=== PATIENT | male | born 1955 | race Caucasian/White ===

== ENCOUNTER 2019-10-17 11:24 | Emergency (ER) | payer OTHER ==
[~2019-10-17 11:24] MED LIST: Iopamidol-370 76% 500 ML 1 ML ONE
[2019-10-17 11:49] LABS: #Basophils 0.1 thou/uL (0.0-0.2); #Eosinphils 0.1 thou/uL (0.0-0.7); #Lymphocytes 2.2 thou/uL (1.20-3.40); #Monocytes 0.7 thou/uL (0.11-0.59); #Neutrophils 6.5 thou/uL (1.40-6.50); %Basophils 0.9 % (0.0-1.0); %Eosinophils 1.4 % (0.0-10.0); %Lymphocytes 23.1 % (21.0-51.0); %Monocytes 7.6 % (0.0-10.0); Hemoglobin 13.2 g/dL (14.0-18.0); Mean Corpuscular HGB CONC 32.2 g/dL (32.0-36.0); Mean Corpuscular Hemoglobin 29.3 pg (27.0-31.0); Mean Corpuscular Volume 90.9 fL (78.0-98.0); Mean Platelet Volume 9.3 fL (7.4-10.4); Platelet Count 217 thou/uL (130-400); RBC Distribution Width 15.2 % (11.5-14.5); White Blood Cell (WBC) Count 9.7 thou/uL (4.8-10.8)
--- NOTE | 2019-10-17 11:51 | RAD ---
RADIOGRAPH CHEST 1 VIEW: DATE: 10/17/2019 TIME: 11:46 AM HISTORY: 64-year-old male with chest pain COMPARISON: none FINDINGS: Magnification of cardiac shadow. Prominent central pulmonary vasculature. Mild haziness of right mid and lower lung zones; uncertain whether this is technical or represents actual mild pulmonary pathology. No effacement of lateral costophrenic angles. No pneumothorax. No obvious consolidation. IMPRESSION: Questionable mild cardiomegaly and mild pulmonary venous congestion
[2019-10-17 12:12] LABS: ALT (SGPT) 127 U/L (8-55); AST (SGOT) 186 U/L (5-34); Albumin 3.4 g/dL (3.4-4.8); Alkaline Phosphatase 185 U/L (40-110); Anion Gap 13 mmol/L (10-20); BUN (Urea Nitrogen) 13 mg/dL (8.4-25.7); Bilirubin, Total 2.6 mg/dL (0.2-1.2); Calc. Creatinine Clearance 0 mL/min (70-130); Carbon Dioxide 23 mmol/L (23-31); Chloride 105 mmol/L (98-107); Estimated GFR-MDRD Greater than 90; Globulin 3.9 g/dL (2.4-3.5); Glucose 133 mg/dL (80-115); Potassium 4.1 mmol/L (3.5-5.1); Protein, Total 7.3 g/dL (5.8-8.1); Sodium 137 mmol/L (136-145)
[2019-10-17 12:33] LABS: CKMB 1.4 ng/mL (0-6.6)
[2019-10-17] MEDS ORDERED: Furosemide 20 MG/2 ML VIAL ONE (13:17)
[2019-10-17 14:13] LABS: Actual Bicarbonate (HCO3a) 17.2 mEq/L (22-28); Analyzer IN Cardio ER; Base Excess (BEa) -4.9 mEq/L (-2.0 to +3.0); Calcium, Ionized 1.11 mmol/L (1.12-1.30); Carboxyhemoglobin (COHb) 0.5 gm% (0.0-3.0); Hemoglobin (Hb) 13.7 g/dL (14.0-18.0); O2 Tension (PaO2) 181.2 mmHg (> 80.0); Potassium - ABG Lab 3.95 mmol/L (3.70-5.30); pH, Arterial 7.46 (7.35-7.45)
[2019-10-17 15:06] LABS: Cocaine Metabolite Screen Not Detected (NotDetected); Medtox Reader # READER 4; Phencyclidine (PCP) Not Detected (NotDetected); THC/Cannabinoid Screen Not Detected (NotDetected)
[2019-10-17 15:07] LABS: Amphetamine Detected (NotDetected); Barbiturates Screen Not Detected (NotDetected); Benzodiazepine Screen Detected (NotDetected); Medtox Control Line Valid? VALID (VALID); Methadone Not Detected (NotDetected); Methamphetamine Detected (NotDetected); Opiate Screen Not Detected (NotDetected); Oxycodone Screen Not Detected (NotDetected); Tricyclic Screen Not Detected (NotDetected)
--- NOTE | 2019-10-17 15:34 | CT ---
CT ANGIOGRAM THORAX WITH CONTRAST: (CTA pulmonary angiogram) DATE: 10/17/2019 HISTORY: 64-year-old male with dry cough, chills, and fever TECHNIQUE: IV injection of iodinated contrast. Scan acquisition timing attempted to coincide with iodinated contrast bolus reaching maximal density in pulmonary arteries. 3-D MIP reconstructions. FINDINGS: There is small lateral pleural effusions, right greater than left. There is mild four-chamber dilatio n of the heart. There is no thrombus in the pulmonic trunk, left and right main pulmonary arteries, or their most proximal branches. The mid and distal branches are more difficult to evaluate because o f breathing motion artifact. There is an approximate 7 mm noncalcified pulmonary nodule in the left lower lobe located laterally a nd slightly anteriorly. Located anterior and slightly inferior to that, there is an approximate 6 mm noncalcified pulmonary n odule very close to the anterior lateral pleural surface, abutting the inferior portion of the major fissure adjacent to the lingula. Approximately 5 mm noncalcified pulmonary nodule at the right lower lobe abutting the lateral pleural surface. Approximate 7 mm noncalcified pulmonary nodule at apicoposterior segment of left upper lobe. There are centrally located perihilar bilateral upper lobe and lower lobe mild interstitial groundgla ss infiltrates. The most prominent is in the right upper lobe surrounding upper lobe bronchi and blood vessels. There is a small approximately 2 cm focal groundglass lesion in anterior segment of le ft upper lobe near anterior pleural surface. No thoracic aortic aneurysm. Not enough IV contrast in aorta to evaluate for dissection. Multiple mil dly to moderately enlarged noncalcified mediastinal and bilateral hilar lymph nodes. IMPRESSION: 1. No evidence of pulmonary thromboembolism out to the second order branches of the bilateral main pu lmonary arteries. 2. Multifocal, predominantly central and perihilar mild infiltrates. Etiology uncertain. Pulmonary in terstitial edema such as from congestive heart failure versus infection. 3. Small bilateral pleural effusions. 4. Several bilateral noncalcified pulmonary nodules. Recommend 6 month follow-up chest CT.
[2019-10-18 10:21] LABS: SARS-CoV-2 MS2 Positive; SARS-CoV-2 N Gene Negative; SARS-CoV-2 S Gene Negative; SARS-CoV-2 orf1ab Negative
[2019-10-18 12:40] LABS: Puncture Site RRA
== END 2019-10-17 18:50 ==
LOC: ERS 11:24
DX: I11.0 Hypertensive heart disease with heart failure (principal); I50.9 Heart failure, unspecified; F15.20 Other stimulant dependence, uncomplicated; Z20.828 Contact with and (suspected) exposure to other viral communicable diseases; J44.9 Chronic obstructive pulmonary disease, unspecified; E11.9 Type 2 diabetes mellitus without complications; F41.9 Anxiety disorder, unspecified; F17.210 Nicotine dependence, cigarettes, uncomplicated; Z79.82 Long term (current) use of aspirin; Z79.4 Long term (current) use of insulin; Z79.899 Other long term (current) drug therapy
CPT/HCPCS: 36415; 51701; 71045; 71275; 80053; 80306; 82553; 82805; 83605; 83880; 84443; 84484; 85025; 87040; 87086; 87635; 93005; J1940; Q9967; U0003

== ENCOUNTER 2020-05-19 06:32 | Inpatient (IN) | payer MEDICARE, OTHER ==
[2020-05-19] MEDS ORDERED: Lorazepam 2 MG/ML VIAL ONE (07:28)
[2020-05-19] MEDS ORDERED: Furosemide 40 MG/4 ML VIAL ONE (07:31)
[2020-05-19] MEDS ORDERED: Nitroglycerin 2% Ointment 1 INCH/1 GM Packet ONE (07:31)
[2020-05-19 07:46] LABS: #Basophils 0.1 thou/uL (0.0-0.2); #Eosinphils 0.2 thou/uL (0.0-0.7); #Lymphocytes 1.9 thou/uL (1.20-3.40); #Neutrophils 6.5 thou/uL (1.40-6.50); %Lymphocytes 19.7 % (21.0-51.0); %Monocytes 10.5 % (0.0-10.0); %Neutrophils 66.8 % (42.0-75.0); Hemoglobin 13.4 g/dL (14.0-18.0); Mean Corpuscular HGB CONC 31.4 g/dL (32.0-36.0); Mean Corpuscular Hemoglobin 29.2 pg (27.0-31.0); Mean Corpuscular Volume 93.3 fL (78.0-98.0); Mean Platelet Volume 9.9 fL (7.4-10.4); Platelet Count 152 thou/uL (130-400); RBC Distribution Width 16.6 % (11.5-14.5); Red Blood Cell (RBC) Count 4.57 mill/uL (4.70-6.10); White Blood Cell (WBC) Count 9.7 thou/uL (4.8-10.8)
--- NOTE | 2020-05-19 07:53 | RAD ---
Chest AP view INDICATION: Shortness of breath COMPARISON: Prior exam dated May 13, 2020 FINDINGS: Lungs: There is new interstitial and airspace opacities affecting both lungs Cardiac silhouette: There is persistent cardiomegaly Pulmonary vasculature: There is mild pulmonary vascular congestion Pleural spaces: There are small suspected pleural effusions Upper abdomen: No abnormality seen. Osseous structures: No acute osseous abnormality. Additional findings: None. IMPRESSION: New interstitial airspace opacities affecting both lungs may reflect airspace edema or atypical infec tious process such as viral pneumonia. There is cardiomegaly, pulmonary vascular congestion and tiny bilateral pleural effusions. Recommend correlation for any symptoms and signs of CHF.
[2020-05-19 08:11] LABS: ALT (SGPT) 19 U/L (8-55); AST (SGOT) 36 U/L (5-34); Albumin 3.2 g/dL (3.4-4.8); Alkaline Phosphatase 182 U/L (40-110); Anion Gap 20 mmol/L (10-20); BUN (Urea Nitrogen) 15 mg/dL (8.4-25.7); Bilirubin, Total 2.6 mg/dL (0.2-1.2); Calc. Creatinine Clearance 0 mL/min (70-130); Calcium 8.3 mg/dL (7.8-10.44); Carbon Dioxide 20 mmol/L (23-31); Chloride 101 mmol/L (98-107); Globulin 4.5 g/dL (2.4-3.5); Glucose 114 mg/dL (80-115); Potassium 4.7 mmol/L (3.5-5.1); Protein, Total 7.7 g/dL (5.8-8.1); Sodium 136 mmol/L (136-145)
[2020-05-19] MEDS ORDERED: Aspirin Chewable 81 MG TAB ONE (08:24)
[2020-05-19 08:31] LABS: CKMB 3.5 ng/mL (0-6.6)
[2020-05-19] MEDS ORDERED: HumaLOG 300 UNITS/3 ML VIAL SC PRN (09:46)
[2020-05-19] MEDS ORDERED: Dextrose 50% Abboject 50 ML SYRINGE SLOW IVP PRN (09:46)
[2020-05-19] MEDS ORDERED: Ondansetron PF 4 MG/2 ML Vial IVP PRN (09:46)
[2020-05-19] MEDS ORDERED: Senokot S 8.6-50 MG TAB PO PRN (09:46)
[2020-05-19] MEDS ORDERED: Dextrose 5% in Water 1,000 ML IV PRN (09:46)
[2020-05-19] MEDS ORDERED: Bisacodyl 10 MG SUPP PR PRN (09:46)
[2020-05-19 10:21] LABS: Alcohol Less than 10 mg/dL (Less than 10); Salicylate Less than 8.0 mg/dL (15.0-30.0)
[2020-05-19 10:49] LABS: Troponin I 0.033 ng/mL (< 0.028)
--- NOTE | 2020-05-19 11:05 | HP ---
REASON FOR ADMISSION: Acute respiratory failure with hypoxia, acute congestive heart failure exacerbation, likely systolic, and metabolic encephalopathy. HISTORY OF PRESENTING ILLNESS: Please note majority of this history is obtained by talking to Dr. Nixon in the ER and prior records as patient is completely obtunded at present. He barely wakes up to sternal pressure. Per ER physician, the patient had come on the for complaints of shortness of breath. He wanted Lasix and got a prescription for it and left from the ER. He did not want to get hospitalized. He normally goes to [facility]. He did not have any fever on arrival. His saturations were 80% to 85% on arrival and had to be placed on BiPAP. The patient got very anxious on BiPAP and got a dose of Ativan 1 mg IV push. From then on, he is more obtunded now. PAST MEDICAL AND SURGICAL HISTORY: History of chronic obstructive pulmonary disease, not on home oxygen; hypertension, diabetes mellitus type 2, obesity, likely heart failure, appendectomy, polysubstance use in the past, and tobacco abuse. CURRENT MEDICATIONS: Cannot be obtained as patient is not oriented. ALLERGIES: ALLERGIC TO CODEINE. PERSONAL HISTORY: The patient apparently smokes half pack a day. His prior urine drug screens have been positive for methamphetamine and marijuana. Alcohol use cannot be ascertained at present. FAMILY HISTORY: Per prior records in 2011, the patient's father has had history of multiple CVAs, diabetes runs in the family. CODE STATUS: Presumed to be full. I am unable to reach his significant other, Ms Alice at [phone]. REVIEW OF SYSTEMS: Cannot be obtained as patient is not oriented at present. PHYSICAL EXAMINATION: GENERAL: The patient is a 64-year-old male, who is currently on BiPAP and is obtunded at present, just barely opening his eyes to sternal pressure. VITAL SIGNS: Blood pressure 114/90, pulse 110 per minute, respiratory rate is 24 per minute, temperature 97.6 degrees fahrenheit, and saturating 93% on BiPAP. NECK: Supple there is elevated JVD. HEENT: Eyes; extraocular muscles are intact. Pupils are reacting to light. Oral cavity, mucous membranes are dry. No exudates or congestion. CARDIOVASCULAR SYSTEM: S1 and S2 heard. Regular rhythm. RESPIRATORY SYSTEM: Air entry 1+ bilateral. Scattered wheezes plus bilateral rhonchi plus, rales plus in the infra-axillary area. ABDOMEN: Soft. Bowel sounds heard. No tenderness, rigidity, or guarding. EXTREMITIES: There is 2+ peripheral edema. No calf tenderness. VASCULAR SYSTEM: Peripheral pulses are barely palpable in the lower extremity. No ischemic ulcers or gangrene. CENTRAL NERVOUS SYSTEM: No gross focal deficits noted. The patient is obtunded at present, but was apparently moving all extremities prior to this. PSYCHIATRIC: Cannot be assessed as patient is obtunded at present. LABORATORY DATA: EKG done shows sinus tach at 117 beats per minute. QRS duration is 120 milliseconds, corrected QT is 465 milliseconds. There is RBBB seen. White count of 9 and H and H 13 and 42, platelet count 152, MCV is 93 with 66% neutrophils. Serum bicarb 20, BUN 15, creatinine 1.0, total bilirubin 2.6, AST 36, ALT 19, alkaline phosphatase 182. BNP 2149. Troponin I 0.03. Albumin is 3.2. Chest x-ray done shows pulmonary vascular congestion with airspace opacities bilaterally. CLINICAL IMPRESSION AND PLAN: The patient will be admitted to IM for acute respiratory failure with hypoxia, acute congestive heart failure exacerbation with unknown systolic function. Metabolic encephalopathy, prior history of substance usage. He will be on Lasix 40 mg IV at 6:00 a.m. and 2:00 p.m.. He has received a dose of Lasix this morning after arrival and his systolic blood pressure has dropped down to 90s. This will be closely monitored. If needed, he will be placed on dobutamine once his echo reveals systolic dysfunction. We will place him on aspirin, small dose of carvedilol, small dose of lisinopril, DuoNebs, steroids for wheezing. COVID-19 PCR is pending at present. Urine and blood drug screens will be obtained. I have consulted Dr. Zhu for Pulmonology. If the patient were to get worse with his mental status or if he develops aspiration, he will be intubated. We will consult Dr. Johnson for Cardiology as well. His overall prognosis is guarded with multiple medical issues in addition to history of substance use, tobacco use, and obesity. We will await COVID-19 PCR test as well. Job ID: [id number] [facility]
--- NOTE | 2020-05-19 11:57 | CON ---
DATE OF CONSULTATION: 05/19/2020 CONSULTING PHYSICIAN: Dr. Saleem. REASON FOR CONSULTATION: Respiratory failure related to congestive heart failure. HISTORY OF PRESENT ILLNESS: The patient is a 64-year-old male who presents to the hospital with increasing shortness of breath. He has been placed on BiPAP temporarily, but now has been weaned off that. He is a very poor historian, can not tell me much. What I have is obtained from reading old notes in the chart. PAST MEDICAL HISTORY: COPD, hypertension, and type 2 diabetes mellitus. PAST SURGICAL HISTORY: Appendectomy - open. SOCIAL HISTORY: He uses cocaine regularly by snorting. He denied tobacco use to me, but a week ago when he was in the emergency room, said he had smoked half pack a day for 30 years. He also endorses social drinking. ALLERGIES: CODEINE. MEDICATIONS: Prior to admission, none known. PHYSICAL EXAMINATION: VITAL SIGNS: Temperature 97.6, blood pressure 107/84, pulse 111, respirations 22, and O2 saturation 98% on 2 L. GENERAL: He is awake. He is fidgeting, but does not appear to be in any overt distress. HEENT: Has a general disheveled appearance. He has poor dentition. NECK: No adenopathy. No thyromegaly. LUNGS: He has inspiratory crackles at both bases. CARDIOVASCULAR: S1 and S2. Slightly tachycardic with summation gallop. ABDOMEN: Soft. There is a low midline surgical scar on the right. EXTREMITIES: No clubbing or cyanosis. He has generalized pitting edema from his knee downward. LABORATORY DATA: His BNP level was almost 2200. Sodium 136, potassium 4.7, chloride 101, CO2 of 20, BUN 15, creatinine 1.1, glucose 114, AST 36, ALT 19. His tox screen showed no alcohol, salicylates, or acetaminophen. White blood cell count 9.7, hematocrit 42.7, and platelet count 152. X-ray shows cardiomegaly with soft alveolar infiltrates. ASSESSMENT: 1. Acute systolic heart failure. 2. 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 3. Acute hypoxic respiratory failure, requiring temporary mechanical ventilation - now weaned. 4. Illicit drug use. PLAN: The patient is being admitted to the hospital for the purpose of diuresis, oxygen supplementation, and generalized care. He has a 7-mm lung nodule by CT scan obtained a week ago in the ER that is peripheral. He will need to follow for that in 6 to [address]. Job ID: [id number]
[2020-05-19 12:01] LABS: SARS-CoV-2 NAA Rapid Test Not Detected (NotDetected)
[2020-05-19 14:09] LABS: Troponin I 0.029 ng/mL (< 0.028)
[2020-05-19 16:09] VITALS: BMI 27.8
[2020-05-19] MEDS: methylPREDNISolone Sod Succ 40 MG VIAL IVP SCH ×2 (17:22→21:11)
[2020-05-19] MEDS: Furosemide 40 MG/4 ML VIAL SLOW IVP SCH (17:22)
[2020-05-19] MEDS ORDERED: Spironolactone 25 MG TAB PO SCH (17:30)
[2020-05-19 18:10] LABS: Amphetamine Not Detected (NotDetected); Barbiturates Screen Not Detected (NotDetected); Benzodiazepine Screen Detected (NotDetected); Cocaine Metabolite Screen Not Detected (NotDetected); Medtox Control Line Valid? VALID (VALID); Medtox Reader # READER 1; Methadone Not Detected (NotDetected); Methamphetamine Detected (NotDetected); Opiate Screen Not Detected (NotDetected); Oxycodone Screen Not Detected (NotDetected); Phencyclidine (PCP) Not Detected (NotDetected); THC/Cannabinoid Screen Not Detected (NotDetected); Tricyclic Screen Not Detected (NotDetected)
[2020-05-19] MEDS ORDERED: FLU VACC QS2020-21(65YR UP)/PF 240 MCG/0.7 ML SYRINGE IM ONE (21:00)
[2020-05-19] MEDS: Famotidine/PF 20 mg/2ml Vial SLOW IVP SCH (21:11)
[2020-05-19] MEDS: Carvedilol 3.125 MG TAB PO SCH (21:11)
[2020-05-19] MEDS: Atorvastatin Calcium 40 MG TAB PO SCH (21:11)
--- NOTE | 2020-05-19 23:52 | CON ---
DATE OF CONSULTATION: HISTORY OF PRESENT ILLNESS: The patient is an unfortunate 64-year-old gentleman,who presents for evaluation of dyspnea. The patient does report that he has a history of congestive heart failure. The patient is followed at the [facility]. The patient was in his usual state of health when he presented with increasing dyspnea. The patient reports that he has been compliant with his medications. The patient denied having any chest discomfort. PAST MEDICAL HISTORY: 1. Congestive heart failure. 2. Diabetes mellitus. 3. Hypertension. 4. COPD. PAST SURGICAL HISTORY: Appendectomy. SOCIAL HISTORY: He has a previous history of tobacco abuse. The patient also has a history of cocaine use. MEDICATIONS: Unknown to the patient. FAMILY HISTORY: Positive family history of heart disease. ALLERGIES: CODEINE. REVIEW OF SYSTEMS: A ten-point system otherwise unremarkable. PHYSICAL EXAMINATION: GENERAL: A well-developed gentleman, in no acute distress. VITAL SIGNS: Blood pressure 124/79. NECK: No jugular venous distention. LUNGS: Crackles in both bases. HEART: Regular rate and rhythm. Normal S1 and S2. 1/6 systolic murmur. ABDOMEN: Distended. EXTREMITIES: Showed moderate bilateral edema. LABORATORY RESULTS: White blood cell count 9.7, hemoglobin 13.4, hematocrit 42.7, and platelets 152. Sodium is 136, potassium 4.7, chloride 101, bicarbonate 20, BUN 15, and creatinine 1.05. Troponin was 0.037. BNP 2149. EKG revealed him to have normal sinus rhythm with a right bundle-branch block, Q-waves suggestive of a previous inferior infarction. IMPRESSION: 1. Congestive heart failure. 2. Severe cardiomyopathy .. 3. Hypertension. 4. Diabetes mellitus. 5. Chronic obstructive pulmonary disease. 6. History of illicit drug use. PLAN: This gentleman presents with congestive heart failure. He is being diuresed with Lasix. We will add spironolactone. The patient should be on Entresto. We will discontinue his lisinopril. He is on aspirin,and I would recommend him being placed on lipid-lowering medication. We will follow this patient with you through this hospitalization. Job ID: [id number] [facility]
[2020-05-20 04:59] LABS: #Basophils 0.1 thou/uL (0.0-0.2); #Lymphocytes 0.7 thou/uL (1.20-3.40); #Monocytes 0.1 thou/uL (0.11-0.59); #Neutrophils 5.6 thou/uL (1.40-6.50); %Basophils 1.1 % (0.0-1.0); %Eosinophils 0.1 % (0.0-10.0); %Lymphocytes 10.6 % (21.0-51.0); %Monocytes 2.2 % (0.0-10.0); %Neutrophils 86.1 % (42.0-75.0); Hemoglobin 12.6 g/dL (14.0-18.0); Mean Corpuscular HGB CONC 31.1 g/dL (32.0-36.0); Mean Corpuscular Hemoglobin 28.7 pg (27.0-31.0); Mean Corpuscular Volume 92.1 fL (78.0-98.0); Platelet Count 148 thou/uL (130-400); RBC Distribution Width 16.8 % (11.5-14.5); Red Blood Cell (RBC) Count 4.39 mill/uL (4.70-6.10); White Blood Cell (WBC) Count 6.5 thou/uL (4.8-10.8)
[2020-05-20] MEDS: methylPREDNISolone Sod Succ 40 MG VIAL IVP SCH (05:21)
[2020-05-20] MEDS: Furosemide 40 MG/4 ML VIAL SLOW IVP SCH ×2 (05:21→14:56)
[2020-05-20 05:30] LABS: ALT (SGPT) 15 U/L (8-55); AST (SGOT) 24 U/L (5-34); Albumin 2.9 g/dL (3.4-4.8); Alkaline Phosphatase 157 U/L (40-110); Anion Gap 19 mmol/L (10-20); BUN (Urea Nitrogen) 16 mg/dL (8.4-25.7); Bilirubin, Total 3.3 mg/dL (0.2-1.2); Calc. Creatinine Clearance 88 mL/min (70-130); Calcium 8.3 mg/dL (7.8-10.44); Carbon Dioxide 18 mmol/L (23-31); Chloride 101 mmol/L (98-107); Glucose 271 mg/dL (80-115); Protein, Total 6.9 g/dL (5.8-8.1); Sodium 134 mmol/L (136-145)
[2020-05-20] MEDS: HumaLOG 300 UNITS/3 ML VIAL SC PRN ×2 (06:18→18:39)
[2020-05-20] MEDS ORDERED: Lisinopril 2.5 MG TAB PO SCH (09:00)
[2020-05-20] MEDS: Aspirin Chewable 81 MG TAB PO SCH (09:56)
[2020-05-20] MEDS: Spironolactone 25 MG TAB PO SCH (09:56)
[2020-05-20] MEDS: Famotidine/PF 20 mg/2ml Vial SLOW IVP SCH (09:57)
[2020-05-20] MEDS: Carvedilol 3.125 MG TAB PO SCH ×2 (09:57→21:06)
[2020-05-20] MEDS: Enoxaparin Sodium 40 MG/0.4 ML SYRINGE SC SCH (09:57)
[2020-05-20] MEDS ORDERED: Magnesium 2 GM/50 ML 2 GM in Premix Bag 1 BAG IVPB SCH (13:00)
--- NOTE | 2020-05-20 13:01 | PDOC.HOSPP ---
- Subjective Encounter Date: 05/20/20 (f/u heart failure) Encounter Time: 12:59 Subjective: Pt reports breathing/swelling better but still having a hard time and short of breath. he denies any n/v/abd pain. He denies any new symptoms. - Objective Vital Signs & Weight: Vital Signs (12 hours) Temp Pulse Pulse Pulse Resp BP BP 05/20/20 12:46 113 H 20 05/20/20 11:14 98 F 105 H 18 05/20/20 08:52 97 91 124/80 111/80 05/20/20 08:00 05/20/20 07:38 97.8 F 111 H 18 05/20/20 07:08 05/20/20 07:06 117 H 20 05/20/20 03:23 99.1 F 111 H 16 BP Pulse Ox Pulse Ox Pulse Ox 05/20/20 12:46 98 05/20/20 11:14 118/80 98 05/20/20 08:52 99 99 05/20/20 08:00 99 05/20/20 07:38 115/78 99 05/20/20 07:08 98 05/20/20 07:06 98 05/20/20 03:23 118/85 96 Weight Weight 181 lb 1.6 oz I&O: 05/19/20 05/20/20 05/21/20 06:59 06:59 06:59 Output Total 1800 Balance -1800 Result Diagrams: 05/20/20 03:57 05/20/20 03:57 Additional Labs: Accuchecks 05/20/20 05/20/20 05/20/20 11:33 05:57 00:25 POC Glucose 343 H 247 H 330 H EKG Reviewed by me: Yes (tele - sinus 100-110's with 4 beats VT) Hospitalist ROS - Medication Medications: Active Medications Generic Name Dose Route Start Last Admin Trade Name Freq PRN Reason Stop Dose Admin Albuterol/Ipratropium 3 ml 05/19/20 13:00 05/20/20 12:46 Ipratropium/Albuterol Sulfate 3 Ml Neb NEB 3 ml [id number] MYRA Administration Aspirin 81 mg 05/20/20 09:00 05/20/20 09:56 Aspirin Chewable 81 Mg Tab PO 81 mg DAILY MYRA Administration Atorvastatin Calcium 40 mg 05/19/20 21:00 05/19/20 21:11 Atorvastatin Calcium 40 Mg Tab PO 40 mg HS MYRA Administration Carvedilol 3.125 mg 05/19/20 21:00 05/20/20 09:57 Carvedilol 3.125 Mg Tab PO 3.125 mg BID MYRA Administration Enoxaparin Sodium 40 mg 05/20/20 09:00 05/20/20 09:57 Enoxaparin Sodium 40 Mg/0.4 Ml Syringe SC 40 mg 0900 MYRA Administration Furosemide 40 mg 05/19/20 14:00 05/20/20 05:21 Furosemide 40 Mg/4 Ml Vial SLOW IVP 40 mg 0600,1400 MYRA Administration Insulin Human Lispro 0 units 05/19/20 09:46 05/20/20 06:18 Humalog 300 Units/3 Ml Vial SC 4 unit .MODERATE SLIDING SC PRN Administration Moderate Correctional Scale Insulin Human Lispro 0 units 05/19/20 09:46 05/20/20 00:40 Humalog 300 Units/3 Ml Vial SC 4 unit .BEDTIME SLIDING SC PRN Administration Bedtime Correctional Scale Spironolactone 25 mg 05/20/20 08:00 05/20/20 09:56 Spironolactone 25 Mg Tab PO 25 mg QAM-WM MYRA Administration - Exam General Appearance: NAD Heart: RRR, no murmur Respiratory: CTAB, no wheezes, no rales, no ronchi Respiratory - other findings: good air movement Gastrointestinal: soft, non-tender, non-distended, normal bowel sounds Extremities - other findings: 1+ edema bilateral Psychiatric: normal affect Hosp A/P (1) Acute decompensated heart failure Code(s): I50.9 - HEART FAILURE, UNSPECIFIED Status: Acute (2) Hypertension Code(s): I10 - ESSENTIAL (PRIMARY) HYPERTENSION Status: Chronic Qualifiers: Hypertension type: essential hypertension Qualified Code(s): I10 - Essential (primary) hypertension (3) Diabetes mellitus Code(s): E11.9 - TYPE 2 DIABETES MELLITUS WITHOUT COMPLICATIONS Status: Chronic Qualifiers: Diabetes mellitus type: type 2 Diabetes mellitus long term care phlebotomist insulin use: with long term care phlebotomist use (4) Acute respiratory failure Code(s): J96.00 - ACUTE RESPIRATORY FAILURE, UNSP W HYPOXIA OR HYPERCAPNIA Status: Acute Qualifiers: Respiratory failure complication: hypoxia Qualified Code(s): J96.01 - Acute respiratory failure with hypoxia (5) Encephalopathy Code(s): G93.40 - ENCEPHALOPATHY, UNSPECIFIED Status: Resolved (6) Ventricular tachycardia Code(s): I47.2 - VENTRICULAR TACHYCARDIA Status: Acute (7) Hypomagnesemia Code(s): E83.42 - HYPOMAGNESEMIA Status: Acute - Plan Acute resp failure secondary to heart failure, unknown type - appreciate Cardiology recs - echo - continue IV lasix and med titration VT & hypomagnesemia - replace magnesium IV Encephalopathy - appears resolved - pt reports he quit tobacco a week ago and he denies any other substance use/abuse DM - uncontrolled - d/c steroids as this does not appear to be COPD exac - add insulin - at home he takes 20 units BID - will start that dvt prophy - lovenox gi prophy - not indicated code status full reviewed plan of care with patient, no questions or further needs at end of eval.
[2020-05-20] MEDS ORDERED: Insulin Glargine 20 UNITS in Pre-Filled Syringe 1 EACH SC SCH (14:00)
[2020-05-20] MEDS: Guaifenesin DM 100-10/5 ML UDCUP PO PRN (21:06)
[2020-05-20] MEDS: Atorvastatin Calcium 40 MG TAB PO SCH (21:06)
[2020-05-20] MEDS: Insulin Glargine 20 UNITS in Pre-Filled Syringe 1 EACH SC SCH (21:15)
[2020-05-21 04:01] LABS: #Lymphocytes 1.4 thou/uL (1.20-3.40); #Monocytes 0.8 thou/uL (0.11-0.59); #Neutrophils 12.9 thou/uL (1.40-6.50); %Basophils 0.2 % (0.0-1.0); %Eosinophils 0.1 % (0.0-10.0); %Lymphocytes 9.4 % (21.0-51.0); %Neutrophils 85.3 % (42.0-75.0); Hemoglobin 12.4 g/dL (14.0-18.0); Mean Corpuscular HGB CONC 30.4 g/dL (32.0-36.0); Mean Corpuscular Hemoglobin 28.5 pg (27.0-31.0); Mean Corpuscular Volume 93.5 fL (78.0-98.0); Mean Platelet Volume 10.3 fL (7.4-10.4); Platelet Count 122 thou/uL (130-400); RBC Distribution Width 16.6 % (11.5-14.5); Red Blood Cell (RBC) Count 4.36 mill/uL (4.70-6.10); White Blood Cell (WBC) Count 15.1 thou/uL (4.8-10.8)
[2020-05-21 04:16] LABS: Anion Gap 19 mmol/L (10-20); BUN (Urea Nitrogen) 24 mg/dL (8.4-25.7); Calc. Creatinine Clearance 71 mL/min (70-130); Calcium 8.2 mg/dL (7.8-10.44); Carbon Dioxide 19 mmol/L (23-31); Chloride 104 mmol/L (98-107); Glucose 229 mg/dL (80-115); Potassium 4.7 mmol/L (3.5-5.1); Sodium 137 mmol/L (136-145)
[2020-05-21] MEDS: Furosemide 40 MG/4 ML VIAL SLOW IVP SCH ×3 (07:53→23:59)
[2020-05-21] MEDS ORDERED: Communication Order-Pharmacy FS SCH (08:15)
[2020-05-21] MEDS ORDERED: Insulin Glargine 20 UNITS in Pre-Filled Syringe 1 EACH SC SCH (09:00)
[2020-05-21] MEDS: Carvedilol 3.125 MG TAB PO SCH ×2 (09:10→20:25)
[2020-05-21] MEDS: Spironolactone 25 MG TAB PO SCH (09:10)
[2020-05-21] MEDS: Aspirin Chewable 81 MG TAB PO SCH (09:10)
[2020-05-21] MEDS: Enoxaparin Sodium 40 MG/0.4 ML SYRINGE SC SCH (09:11)
[2020-05-21] MEDS: Insulin Glargine 20 UNITS in Pre-Filled Syringe 1 EACH SC SCH (10:18)
[2020-05-21] MEDS: HumaLOG 300 UNITS/3 ML VIAL SC PRN ×2 (12:10→18:39)
--- NOTE | 2020-05-21 12:19 | PDOC.HOSPP ---
- Subjective Encounter Date: 05/21/20 (f/u heart failure) Encounter Time: 12:17 Subjective: Pt is out of breath after walking. States he doesnt feel as good now as he did earlier. He denies any pain. he reports pulling the figueredo out becuase it was uncomfortable. Overnight RN notes that pt was acting up and he pulled out iv as well. - Objective Vital Signs & Weight: Vital Signs (12 hours) Temp Pulse Pulse Pulse Resp BP BP 05/21/20 12:08 97.5 F L 101 H 17 05/21/20 09:41 99 100 102/66 109/74 05/21/20 07:52 05/21/20 07:48 97.5 F L 97 14 05/21/20 06:23 98 05/21/20 04:14 97.5 F L 95 24 H 05/21/20 04:00 BP Pulse Ox Pulse Ox Pulse Ox 05/21/20 12:08 94/65 99 05/21/20 09:41 100 99 05/21/20 07:52 96 05/21/20 07:48 102/66 96 05/21/20 06:23 95/67 05/21/20 04:14 92/58 L 96 05/21/20 04:00 96 Weight Weight 181 lb 1.6 oz I&O: 05/20/20 05/21/20 05/22/20 06:59 06:59 06:59 Intake Total 500 300 Output Total 1800 800 400 Balance -1800 -300 -100 Result Diagrams: 05/21/20 03:44 05/21/20 03:44 Additional Labs: Accuchecks 05/21/20 05/21/20 05/20/20 11:21 05:59 23:50 POC Glucose 244 H 224 H 165 H 05/20/20 21:15 POC Glucose 185 H EKG Reviewed by me: Yes (tele - sinus rate 90's with 1st deg av block) Hospitalist ROS - Medication Medications: Active Medications Generic Name Dose Route Start Last Admin Trade Name Freq PRN Reason Stop Dose Admin Aspirin 81 mg 05/20/20 09:00 05/21/20 09:10 Aspirin Chewable 81 Mg Tab PO 81 mg DAILY MYRA Administration Atorvastatin Calcium 40 mg 05/19/20 21:00 05/20/20 21:06 Atorvastatin Calcium 40 Mg Tab PO 40 mg HS MYRA Administration Carvedilol 3.125 mg 05/19/20 21:00 05/21/20 09:10 Carvedilol 3.125 Mg Tab PO 3.125 mg BID MYRA Administration Enoxaparin Sodium 40 mg 05/20/20 09:00 05/21/20 09:11 Enoxaparin Sodium 40 Mg/0.4 Ml Syringe SC 05/21/20 21:30 40 mg 0900 MYRA Administration Furosemide 40 mg 05/19/20 14:00 05/21/20 07:53 Furosemide 40 Mg/4 Ml Vial SLOW IVP Not Given 0600,1400 [facility] Guaifenesin/Dextromethorphan 15 ml 05/19/20 09:46 05/20/20 21:06 Guaifenesin Dm 100-10/5 Ml Udcup PO 15 ml Q4H PRN Administration Cough Insulin Human Lispro 0 units 05/19/20 09:46 05/21/20 12:10 Humalog 300 Units/3 Ml Vial SC 4 unit .MODERATE SLIDING SC PRN Administration Moderate Correctional Scale Insulin Human Lispro 0 units 05/19/20 09:46 05/20/20 00:40 Humalog 300 Units/3 Ml Vial SC 4 unit .BEDTIME SLIDING SC PRN Administration Bedtime Correctional Scale Sacubitril/Valsartan 1 tab 05/20/20 21:00 05/21/20 10:18 Sacubitril 24mg/Valsartan 26mg Tab PO 1 tab BID MYRA Administration Spironolactone 25 mg 05/20/20 08:00 05/21/20 09:10 Spironolactone 25 Mg Tab PO 25 mg QAM-WM MYRA Administration - Exam General Appearance: NAD Heart: RRR, no murmur Respiratory: no wheezes, no rales, no ronchi Respiratory - other findings: good air movement Gastrointestinal: soft, non-tender, non-distended, normal bowel sounds Extremities - other findings: 1+ edema bilateral edema Psychiatric: normal affect Hosp A/P (1) Acute decompensated heart failure Code(s): I50.9 - HEART FAILURE, UNSPECIFIED Status: Acute (2) Hypertension Code(s): I10 - ESSENTIAL (PRIMARY) HYPERTENSION Status: Chronic Qualifiers: Hypertension type: essential hypertension Qualified Code(s): I10 - Essential (primary) hypertension (3) Diabetes mellitus Code(s): E11.9 - TYPE 2 DIABETES MELLITUS WITHOUT COMPLICATIONS Status: Chronic Qualifiers: Diabetes mellitus type: type 2 Diabetes mellitus correction insulin use: with correction use (4) Acute respiratory failure Code(s): J96.00 - ACUTE RESPIRATORY FAILURE, UNSP W HYPOXIA OR HYPERCAPNIA Status: Acute Qualifiers: Respiratory failure complication: hypoxia Qualified Code(s): J96.01 - Acute respiratory failure with hypoxia (5) Encephalopathy Code(s): G93.40 - ENCEPHALOPATHY, UNSPECIFIED Status: Resolved (6) Ventricular tachycardia Code(s): I47.2 - VENTRICULAR TACHYCARDIA Status: Resolved (7) Hypomagnesemia Code(s): E83.42 - HYPOMAGNESEMIA Status: Resolved - Plan Acute resp failure secondary to systolic and diastolic HF - appreciate Cardiology recs - echo shows low EF estimated at 20-25% - plan for cath tomorrow - on beta-raymond, entresto, spironolactone VT & hypomagnesemia - both resolved Encephalopathy - appears resolved - placed a communication [facility] DM - uncontrolled - steroids d/c yesterday and long-acting insulin started - will increase long-acting insulin to 25 units BID and continue adjusting - leukocytosis today likely secondary to steroids that were d/c yesterday. No focal signs of infection. dvt prophy - lovenox - d/c as pt having a cath tomorrow. gi prophy - not indicated code status full reviewed plan of care with patient, no questions or further needs at end of eval.
[2020-05-21] MEDS: Guaifenesin DM 100-10/5 ML UDCUP PO PRN ×2 (16:42→20:25)
[2020-05-21] MEDS: Atorvastatin Calcium 40 MG TAB PO SCH (20:25)
[2020-05-21] MEDS: Insulin Glargine 25 UNITS in Pre-Filled Syringe 1 EACH SC SCH (20:34)
[2020-05-22 03:56] LABS: #Basophils 0.1 thou/uL (0.0-0.2); #Lymphocytes 1.6 thou/uL (1.20-3.40); #Monocytes 1.3 thou/uL (0.11-0.59); #Neutrophils 14.3 thou/uL (1.40-6.50); %Basophils 0.3 % (0.0-1.0); %Eosinophils 0.2 % (0.0-10.0); %Lymphocytes 9.2 % (21.0-51.0); %Monocytes 7.7 % (0.0-10.0); %Neutrophils 82.6 % (42.0-75.0); Mean Corpuscular HGB CONC 31.4 g/dL (32.0-36.0); Mean Corpuscular Hemoglobin 29.1 pg (27.0-31.0); Mean Corpuscular Volume 92.7 fL (78.0-98.0); Mean Platelet Volume 10.1 fL (7.4-10.4); Platelet Count 147 thou/uL (130-400); RBC Distribution Width 16.8 % (11.5-14.5); Red Blood Cell (RBC) Count 4.47 mill/uL (4.70-6.10); White Blood Cell (WBC) Count 17.4 thou/uL (4.8-10.8)
[2020-05-22 04:16] LABS: Anion Gap 17 mmol/L (10-20); BUN (Urea Nitrogen) 33 mg/dL (8.4-25.7); Calc. Creatinine Clearance 80 mL/min (70-130); Calcium 7.8 mg/dL (7.8-10.44); Carbon Dioxide 20 mmol/L (23-31); Chloride 102 mmol/L (98-107); Glucose 157 mg/dL (80-115); Magnesium 1.9 mg/dL (1.6-2.6); Potassium 4.4 mmol/L (3.5-5.1); Sodium 135 mmol/L (136-145)
[2020-05-22] MEDS: Aspirin Chewable 81 MG TAB PO SCH (06:08)
[2020-05-22] MEDS: Carvedilol 3.125 MG TAB PO SCH ×2 (06:08→21:39)
[2020-05-22] MEDS ORDERED: Sodium Chloride 0.9% 500 ML IV SCH (08:45)
[2020-05-22] MEDS: Spironolactone 25 MG TAB PO SCH (09:15)
[2020-05-22] MEDS: Insulin Glargine 25 UNITS in Pre-Filled Syringe 1 EACH SC SCH (09:15)
--- NOTE | 2020-05-22 09:25 | PDOC.HOSPP ---
- Subjective Encounter Date: 05/22/20 (f/u heart failure) Encounter Time: :20 Subjective: Pt admitted for decompensated heart failure (EF 20-25%), has been started on multiple medications, including steroids for concern for COPD with last dose 2 days ago. This morning his blood pressure was low. Was to have a cath - postponed due to leukocytosis. Pt feeling nauseous. bp's in the 80's systolic, and he is receiving IVF. He reports breathing is better. He denies any chest pain. - Objective Vital Signs & Weight: Vital Signs (12 hours) Temp Pulse Resp BP Pulse Ox 05/22/20 08:04 97.3 F L 90 16 82/60 L 100 05/22/20 07:40 95 05/22/20 03:41 97.7 F 91 20 109/75 95 Weight Weight 180 lb 6 oz I&O: 05/21/20 05/22/20 05/23/20 06:59 06:59 06:59 Intake Total 500 940 Output Total 800 1160 Balance -300 -220 Result Diagrams: 05/22/20 03:43 05/22/20 03:43 Additional Labs: Accuchecks 05/21/20 05/21/20 05/21/20 23:45 19:53 17:38 POC Glucose 131 H 85 157 H 05/21/20 05/20/20 11:21 17:57 POC Glucose 244 H 217 H EKG Reviewed by me: Yes (tele - 60's with fusion beats, brief wap and mat) Hospitalist ROS - Medication Medications: Active Medications Generic Name Dose Route Start Last Admin Trade Name Sheyla PRN Reason Stop Dose Admin Aspirin 81 mg 05/20/20 09:00 05/22/20 06:08 Aspirin Chewable 81 Mg Tab PO 81 mg DAILY MYRA Administration Atorvastatin Calcium 40 mg 05/19/20 21:00 05/21/20 20:25 Atorvastatin Calcium 40 Mg Tab PO 40 mg HS MYRA Administration Carvedilol 3.125 mg 05/19/20 21:00 05/22/20 06:08 Carvedilol 3.125 Mg Tab PO 3.125 mg BID MYRA Administration Furosemide 40 mg 05/19/20 14:00 05/21/20 23:59 Furosemide 40 Mg/4 Ml Vial SLOW IVP Not Given 0600,1400 MYRA Guaifenesin/Dextromethorphan 15 ml 05/19/20 09:46 05/21/20 20:25 Guaifenesin Dm 100-10/5 Ml Udcup PO 15 ml Q4H PRN Administration Cough Insulin Glargine 25 units/ 0.25 mls @ 0 mls/hr 05/21/20 21:00 05/22/20 09:15 Miscellaneous Medication SC Not Given BID MYRA Insulin Human Lispro 0 units 05/19/20 09:46 05/21/20 18:39 Humalog 300 Units/3 Ml Vial SC 2 unit .MODERATE SLIDING SC PRN Administration Moderate Correctional Scale Insulin Human Lispro 0 units 05/19/20 09:46 05/20/20 00:40 Humalog 300 Units/3 Ml Vial SC 4 unit .BEDTIME SLIDING SC PRN Administration Bedtime Correctional Scale Ondansetron HCl 4 mg 05/19/20 09:46 05/22/20 09:10 Ondansetron Pf 4 Mg/2 Ml Vial IVP 4 mg Q6H PRN Administration Nausea/Vomiting Sacubitril/Valsartan 1 tab 05/20/20 21:00 05/22/20 06:09 Sacubitril 24mg/Valsartan 26mg Tab PO 1 tab BID MYRA Administration Spironolactone 25 mg 05/20/20 08:00 05/22/20 09:15 Spironolactone 25 Mg Tab PO Not Given QAM-WM MYRA - Exam General Appearance: NAD Heart - other findings: distant heart sounds - 3/6 YOSSI at apex Respiratory: no wheezes, no rales, no ronchi Gastrointestinal: soft, non-tender, non-distended, normal bowel sounds Extremities - other findings: 2+ edema bilateral Psychiatric - other findings: pt tired appearing today Hosp A/P (1) Acute decompensated heart failure Code(s): I50.9 - HEART FAILURE, UNSPECIFIED Status: Acute (2) Hypertension Code(s): I10 - ESSENTIAL (PRIMARY) HYPERTENSION Status: Chronic Qualifiers: Hypertension type: essential hypertension Qualified Code(s): I10 - Essential (primary) hypertension (3) Diabetes mellitus Code(s): E11.9 - TYPE 2 DIABETES MELLITUS WITHOUT COMPLICATIONS Status: Chronic Qualifiers: Diabetes mellitus type: type 2 Diabetes mellitus detention insulin use: with detention use (4) Acute respiratory failure Code(s): J96.00 - ACUTE RESPIRATORY FAILURE, UNSP W HYPOXIA OR HYPERCAPNIA Status: Acute Qualifiers: Respiratory failure complication: hypoxia Qualified Code(s): J96.01 - Acute respiratory failure with hypoxia (5) Encephalopathy Code(s): G93.40 - ENCEPHALOPATHY, UNSPECIFIED Status: Resolved (6) Ventricular tachycardia Code(s): I47.2 - VENTRICULAR TACHYCARDIA Status: Resolved (7) Hypomagnesemia Code(s): E83.42 - HYPOMAGNESEMIA Status: Resolved - Plan Acute resp failure secondary to systolic and diastolic HF - currently on room air - appreciate Cardiology recs - echo shows low EF estimated at 20-25% - plan for cath today - on beta-raymond, entresto, spironolactone Hypotension - secondary to heart failure and meds - on IVF, further tx per Dr. Johnson VT & hypomagnesemia - both resolved Encephalopathy - appears resolved - placed a communication [facility] DM - improved control - steroids d/c 2 days ago and long-acting insulin started - continue current insulin - leukocytosis yesterday and today likely secondary to steroids dvt prophy - lovenox - d/c as pt having a cath tomorrow. gi prophy - not indicated code status full reviewed plan of care with patient, no questions or further needs at end of eval. Addendum/18:09 - reviewed and blood sugars through the day today are less than 100. Will cancel the long-acting insulin and monitor. This will need to be re-evaluated tomorrow. Will also add in an extra check overnight to monitor for hypoglycemia.
[2020-05-22] MEDS: Furosemide 40 MG/4 ML VIAL SLOW IVP SCH (15:40)
[2020-05-22] MEDS: Atorvastatin Calcium 40 MG TAB PO SCH (21:38)
[2020-05-23 04:45] LABS: Anion Gap 17 mmol/L (10-20); BUN (Urea Nitrogen) 29 mg/dL (8.4-25.7); Calc. Creatinine Clearance 91 mL/min (70-130); Calcium 7.9 mg/dL (7.8-10.44); Carbon Dioxide 21 mmol/L (23-31); Chloride 103 mmol/L (98-107); Glucose 140 mg/dL (80-115); Potassium 4.6 mmol/L (3.5-5.1); Sodium 136 mmol/L (136-145)
[2020-05-23 05:24] LABS: Band 1 % (5-11); Eosinophils 1 % (0-10); Hemoglobin 13.9 g/dL (14.0-18.0); Lymphocytes 18 % (21-51); MDiff Complete? YES; Mean Corpuscular HGB CONC 30.2 g/dL (32.0-36.0); Mean Corpuscular Hemoglobin 28.8 pg (27.0-31.0); Mean Corpuscular Volume 95.6 fL (78.0-98.0); Mean Platelet Volume 10.2 fL (7.4-10.4); Monocytes 7 % (0-10); Neutrophil 73 % (42-75); Platelet Count 174 thou/uL (130-400); RBC Distribution Width 17.3 % (11.5-14.5); Red Blood Cell (RBC) Count 4.81 mill/uL (4.70-6.10)
[2020-05-23] MEDS: Furosemide 40 MG/4 ML VIAL SLOW IVP SCH ×2 (05:32→14:30)
[2020-05-23] MEDS ORDERED: Midazolam HCl 2 mg/2 ml Vial ONE (09:32)
[2020-05-23] MEDS ORDERED: Sodium Chloride 0.9% 200 ML IV PRN (09:48)
[2020-05-23] MEDS ORDERED: Nitroglycerin 0.4 MG TAB (25 Tab Bottle) SL PRN (09:48)
--- NOTE | 2020-05-23 10:01 | PDOC.HOSPP ---
- Subjective Encounter Date: 05/23/20 Encounter Time: 09:00 Subjective: Mr. Chand was in bed at the time of the visit. Denied any chest pain and has improved breathing since yesterday. Reports some nausea. Has been NPO since midnight, so reported being thirsty and having hunger pains. - Objective Vital Signs & Weight: Vital Signs (12 hours) Temp Pulse Resp BP BP Pulse Ox 05/23/20 08:07 100 05/23/20 07:37 97.8 F 97 18 106/65 100 05/23/20 04:00 97.6 F 96 16 97/68 100 05/22/20 23:59 105/76 100 Weight Weight 83.642 kg I&O: 05/22/20 05/23/20 05/24/20 06:59 06:59 06:59 Intake Total 940 840 Output Total 1160 Balance -220 840 Result Diagrams: 05/23/20 03:46 05/23/20 03:46 Additional Labs: Accuchecks 05/22/20 05/22/20 05/22/20 21:11 16:56 11:52 POC Glucose 184 H 97 76 Hospitalist ROS - Review of Systems Respiratory: reports: shortness of breath (improved since yesterday). denies: cough, dry Cardiovascular: reports: edema. denies: chest pain, palpitations, orthopnea Gastrointestinal: reports: nausea. denies: vomiting, abdominal pain, diarrhea, constipation - Medication Medications: Active Medications Generic Name Dose Route Start Last Admin Trade Name Freq PRN Reason Stop Dose Admin Aspirin 81 mg 05/20/20 09:00 05/22/20 06:08 Aspirin Chewable 81 Mg Tab PO 81 mg DAILY MYRA Administration Atorvastatin Calcium 40 mg 05/19/20 21:00 05/22/20 21:38 Atorvastatin Calcium 40 Mg Tab PO 40 mg HS MYRA Administration Carvedilol 3.125 mg 05/19/20 21:00 05/22/20 21:39 Carvedilol 3.125 Mg Tab PO Not Given BID MYRA Furosemide 40 mg 05/19/20 14:00 05/23/20 05:32 Furosemide 40 Mg/4 Ml Vial SLOW IVP Not Given 0600,1400 MYRA Guaifenesin/Dextromethorphan 15 ml 05/19/20 09:46 05/21/20 20:25 Guaifenesin Dm 100-10/5 Ml Udcup PO 15 ml Q4H PRN Administration Cough Insulin Human Lispro 0 units 05/19/20 09:46 05/21/20 18:39 Humalog 300 Units/3 Ml Vial SC 2 unit .MODERATE SLIDING SC PRN Administration Moderate Correctional Scale Insulin Human Lispro 0 units 05/19/20 09:46 05/20/20 00:40 Humalog 300 Units/3 Ml Vial SC 4 unit .BEDTIME SLIDING SC PRN Administration Bedtime Correctional Scale Ondansetron HCl 4 mg 05/19/20 09:46 05/22/20 09:10 Ondansetron Pf 4 Mg/2 Ml Vial IVP 4 mg Q6H PRN Administration Nausea/Vomiting Sacubitril/Valsartan 1 tab 05/20/20 21:00 05/22/20 21:39 Sacubitril 24mg/Valsartan 26mg Tab PO Not Given BID MYRA Spironolactone 25 mg 05/20/20 08:00 05/22/20 09:15 Spironolactone 25 Mg Tab PO Not Given QAM-WM MYRA - Exam General Appearance: awake alert Eye: anicteric sclera ENT: normocephalic atraumatic Neck: supple Heart: RRR, murmur present (3/6 systolic murmur) Respiratory: CTAB, no wheezes, no rales, no ronchi Gastrointestinal: soft, non-tender, non-distended, normal bowel sounds Extremities: 1+ LE edema Hosp A/P - Plan Diastolic HF - Cardiac catheterization today - Held Coreg and Entresto given low BP over the last day - Continued spirinolactone DM - long acting insulin was discontinued yesterday due to blood sugars <100 - Will add it back with a smaller dose since values are in 180s today Leukocytosis - ordered CXR, blood cultures, and UA to rule out infectious etiology - improved since yesterday Patient seen and examined went agree with medical student. Cardiac cath done medical management no stents.
--- NOTE | 2020-05-23 10:49 | RAD ---
PORTABLE CHEST: Date: 05/23/2020 HISTORY: Leukocytosis. COMPARISON: 05/19/2020. FINDINGS/IMPRESSION: Borderline cardiomegaly is stable. Lungs appear clear with no infiltrate identified. The mild interst itial prominence noted on the prior study is less pronounced today. POS: AGW
[2020-05-23] MEDS: Aspirin Chewable 81 MG TAB PO SCH (11:48)
[2020-05-23] MEDS: Carvedilol 3.125 MG TAB PO SCH ×2 (11:48→21:19)
[2020-05-23] MEDS: Spironolactone 25 MG TAB PO SCH (11:48)
[2020-05-23] MEDS ORDERED: Iopamidol 370 76% 100 ML VIAL ONE (12:48)
[2020-05-23 14:33] LABS: Bacteria/HPF None Seen HPF (None Seen); Bilirubin Negative (Negative); Blood, Urine Negative (Negative); Clarity Clear (Clear); Glucose, Urine (Dipstick) Normal (Negative); Ketone, Urine Trace mg/dL (Negative); Leukocyte Negative Leu/uL (Negative); Nitrite Negative (Negative); Protein, Urine (Dipstick) 20 mg/dL (Neg-Trace); RBC/HPF 0-3 HPF (0-3); Specific Gravity, Urine 1.034 (1.002-1.036); Squamous Epithelial None Seen HPF (0-3); Urobilinogen 12 mg/dL (Less than 2); WBC/HPF 0-3 HPF (0-3); pH, Urine 6.5 (5.0-9.0)
[2020-05-23 14:44] LABS: Urine Culture Reflex No No
[2020-05-23] MEDS: Atorvastatin Calcium 40 MG TAB PO SCH (21:55)
[2020-05-23] MEDS ORDERED: Melatonin 3 MG TAB PO SCH (23:30)
[2020-05-24] MEDS: Furosemide 40 MG/4 ML VIAL SLOW IVP SCH (06:26)
[2020-05-24] MEDS: Aspirin Chewable 81 MG TAB PO SCH (09:34)
[2020-05-24] MEDS: Carvedilol 3.125 MG TAB PO SCH ×2 (10:03→21:58)
[2020-05-24] MEDS: Spironolactone 25 MG TAB PO SCH (10:03)
[2020-05-24] MEDS ORDERED: Sodium Chloride 0.9% 250 ML IV SCH (13:15)
[2020-05-24] MEDS: Acetaminophen 325 MG TAB PO PRN (21:57)
[2020-05-24] MEDS: Guaifenesin DM 100-10/5 ML UDCUP PO PRN (21:57)
[2020-05-24] MEDS: Melatonin 3 MG TAB PO SCH (21:58)
[2020-05-24] MEDS: Atorvastatin Calcium 40 MG TAB PO SCH (21:58)
--- NOTE | 2020-05-25 08:35 | PDOC.HOSPP ---
- Subjective Encounter Date: 05/24/20 Encounter Time: 11:15 Subjective: Patient up in bed complains of some dizziness - Objective Vital Signs & Weight: Vital Signs (12 hours) Temp Pulse Resp BP BP BP Pulse Ox 05/25/20 07:27 97.5 F L 93 21 H 95/67 94 L 05/25/20 04:00 97.6 F 88 13 92/42 L 100 05/25/20 03:53 101 H 110/77 05/24/20 23:21 101 H 110/77 05/24/20 21:36 99 Weight Weight 186 lb 6.4 oz I&O: 05/24/20 05/25/20 05/26/20 06:59 06:59 06:59 Intake Total 450 237 Output Total 350 Balance 100 237 Result Diagrams: 05/23/20 03:46 05/23/20 03:46 Additional Labs: Accuchecks 05/24/20 05/24/20 21:05 12:44 POC Glucose 165 H 184 H Hospitalist ROS - Review of Systems Cardiovascular: denies: chest pain, palpitations, orthopnea, paroxysmal noc. dyspnea, edema, light headedness, other Gastrointestinal: denies: nausea, vomiting, abdominal pain, diarrhea, constipation, melena, hematochezia, other Genitourinary: denies: dysuria, frequency, incontinence, hematuria, retention, other - Medication Medications: Active Medications Generic Name Dose Route Start Last Admin Trade Name Freq PRN Reason Stop Dose Admin Acetaminophen 650 mg 05/19/20 09:46 05/24/20 21:57 Acetaminophen 325 Mg Tab PO 650 mg Q4H PRN Administration Headache/Fever/Mild Pain (1-3) Aspirin 81 mg 05/20/20 09:00 05/24/20 09:34 Aspirin Chewable 81 Mg Tab PO 81 mg DAILY MYRA Administration Atorvastatin Calcium 40 mg 05/19/20 21:00 05/24/20 21:58 Atorvastatin Calcium 40 Mg Tab PO 40 mg HS MYRA Administration Carvedilol 3.125 mg 05/19/20 21:00 05/24/20 21:58 Carvedilol 3.125 Mg Tab PO 3.125 mg BID MYRA Administration Guaifenesin/Dextromethorphan 15 ml 05/19/20 09:46 05/24/20 21:57 Guaifenesin Dm 100-10/5 Ml Udcup PO 15 ml Q4H PRN Administration Cough Insulin Human Lispro 0 units 05/19/20 09:46 05/21/20 18:39 Humalog 300 Units/3 Ml Vial SC 2 unit .MODERATE SLIDING SC PRN Administration Moderate Correctional Scale Insulin Human Lispro 0 units 05/19/20 09:46 05/20/20 00:40 Humalog 300 Units/3 Ml Vial SC 4 unit .BEDTIME SLIDING SC PRN Administration Bedtime Correctional Scale Melatonin 3 mg 05/24/20 21:00 05/24/20 21:58 Melatonin 3 Mg Tab PO 3 mg HS MYRA Administration Ondansetron HCl 4 mg 05/19/20 09:46 05/22/20 09:10 Ondansetron Pf 4 Mg/2 Ml Vial IVP 4 mg Q6H PRN Administration Nausea/Vomiting Spironolactone 25 mg 05/20/20 08:00 05/24/20 10:03 Spironolactone 25 Mg Tab PO Not Given QAM- MYRA - Exam Neck: negative: supple, symmetric, no JVD, no thyromegaly, no lymphadenopathy, no carotid bruit, JVD Heart: negative: RRR, no murmur, no gallops, no rubs, normal peripheral pulses, irregular, diminshed peripheral pulses, murmur present, II/IV, III/IV Respiratory: negative: CTAB, no wheezes, no rales, no ronchi, normal chest expansion, no tachypnea, normal percussion, rales, rhonchi, tachypneic, wheezes Gastrointestinal: negative: soft, non-tender, non-distended, normal bowel sounds, no palpable masses, no hepatomegaly, no splenomegaly, no bruit, no guarding, no rigidity, tender to palpation, distended, diminished bowl sounds, voluntary guarding Hosp A/P - Plan Diastolic HF - Cardiac catheterization today - Held Coreg and Entresto given low BP over the last day - Continued spirinolactone DM - long acting insulin was discontinued yesterday due to blood sugars <100 - Will add it back with a smaller dose since values are in 180s today Leukocytosis - ordered CXR, blood cultures, and UA to rule out infectious etiology - improved since yesterday Patient seen and examined went agree with medical student. Cardiac cath done medical management no stents. 05/24 we will hold patient's blood pressure medications his pressures are in the lower side today. We will continue to monitor. Diuretics have been disco ntinued.
[2020-05-25] MEDS ORDERED: Ivabradine 5 MG TAB PO SCH (09:45)
[2020-05-25] MEDS: Spironolactone 25 MG TAB PO SCH (10:00)
[2020-05-25] MEDS: Carvedilol 3.125 MG TAB PO SCH ×2 (10:01→21:02)
[2020-05-25] MEDS: Aspirin Chewable 81 MG TAB PO SCH (10:17)
[2020-05-25] MEDS: Calcium Carbonate 500 MG ChewTAB PO PRN (13:53)
--- NOTE | 2020-05-25 17:42 | PDOC.HOSPP ---
- Subjective Encounter Date: 05/25/20 Encounter Time: 10:00 (10) Subjective: Patient seen for follow-up regarding CHF exacerbation. Reports feeling better. - Objective Vital Signs & Weight: Vital Signs (12 hours) Temp Pulse Resp BP Pulse Ox 05/25/20 11:11 97.2 F L 89 18 107/59 L 100 05/25/20 07:27 97.5 F L 93 21 H 95/67 94 L Weight Weight 186 lb 6.4 oz I&O: 05/24/20 05/25/20 05/26/20 06:59 06:59 06:59 Intake Total 450 237 480 Output Total 350 Balance 100 237 480 Result Diagrams: 05/23/20 03:46 05/23/20 03:46 Additional Labs: Accuchecks 05/25/20 05/24/20 11:18 21:05 POC Glucose 244 H 165 H EKG Reviewed by me: Yes (Normal sinus rhythm on telemetry) Hospitalist ROS - Review of Systems Respiratory: reports: SOB with excertion. denies: cough, shortness of breath, pleuritic pain, wheezing Cardiovascular: denies: chest pain, palpitations, orthopnea, paroxysmal noc. dyspnea, edema, light headedness - Medication Medications: Active Medications Generic Name Dose Route Start Last Admin Trade Name Freq PRN Reason Stop Dose Admin Acetaminophen 650 mg 05/19/20 09:46 05/24/20 21:57 Acetaminophen 325 Mg Tab PO 650 mg Q4H PRN Administration Headache/Fever/Mild Pain (1-3) Aspirin 81 mg 05/20/20 09:00 05/25/20 10:17 Aspirin Chewable 81 Mg Tab PO 81 mg DAILY MYRA Administration Atorvastatin Calcium 40 mg 05/19/20 21:00 05/24/20 21:58 Atorvastatin Calcium 40 Mg Tab PO 40 mg HS MYRA Administration Calcium Carbonate 1,000 mg 05/19/20 09:46 05/25/20 13:53 Calcium Carbonate 500 Mg Chewtab PO 1,000 mg Q4H PRN Administration Heartburn or Indigestion Carvedilol 3.125 mg 05/19/20 21:00 05/25/20 10:01 Carvedilol 3.125 Mg Tab PO Not Given BID MYRA Guaifenesin/Dextromethorphan 15 ml 05/19/20 09:46 05/24/20 21:57 Guaifenesin Dm 100-10/5 Ml Udcup PO 15 ml Q4H PRN Administration Cough Insulin Human Lispro 0 units 05/19/20 09:46 05/21/20 18:39 Humalog 300 Units/3 Ml Vial SC 2 unit .MODERATE SLIDING SC PRN Administration Moderate Correctional Scale Insulin Human Lispro 0 units 05/19/20 09:46 05/20/20 00:40 Humalog 300 Units/3 Ml Vial SC 4 unit .BEDTIME SLIDING SC PRN Administration Bedtime Correctional Scale Melatonin 3 mg 05/24/20 21:00 05/24/20 21:58 Melatonin 3 Mg Tab PO 3 mg HS MYRA Administration Ondansetron HCl 4 mg 05/19/20 09:46 05/22/20 09:10 Ondansetron Pf 4 Mg/2 Ml Vial IVP 4 mg Q6H PRN Administration Nausea/Vomiting Sacubitril/Valsartan 0.5 tab 05/25/20 09:00 05/25/20 10:17 Sacubitril 24mg/Valsartan 26mg Tab PO 0.5 tab BID MYRA Administration Spironolactone 25 mg 05/20/20 08:00 05/25/20 10:00 Spironolactone 25 Mg Tab PO Not Given QAM-WM MYRA - Exam General Appearance: awake alert Eye: anicteric sclera ENT: moist mucosa Neck: supple Heart: RRR Respiratory - other findings: Bibasal crackles Gastrointestinal: soft, non-tender Skin: no rashes Psychiatric: normal affect, normal behavior Hosp A/P - Plan - Plan Diastolic HF -Status post cardiac cath -Patient started on ivabradine DM -Switch to aggressive insulin sliding scale. Leukocytosis -Check a.m. labs
[2020-05-25] MEDS ORDERED: HumaLOG 300 UNITS/3 ML VIAL SC PRN (17:46)
[2020-05-25] MEDS: Acetaminophen 325 MG TAB PO PRN (17:59)
[2020-05-25] MEDS: Melatonin 3 MG TAB PO SCH (21:02)
[2020-05-25] MEDS: Ivabradine 5 MG TAB PO SCH (21:02)
[2020-05-25] MEDS: Atorvastatin Calcium 40 MG TAB PO SCH (21:02)
[2020-05-26] MEDS: Carvedilol 3.125 MG TAB PO SCH (08:56)
[2020-05-26] MEDS: Spironolactone 25 MG TAB PO SCH (08:56)
[2020-05-26] MEDS: Aspirin Chewable 81 MG TAB PO SCH (08:56)
[2020-05-26] MEDS: Ivabradine 5 MG TAB PO SCH (08:56)
--- NOTE | 2020-05-26 14:40 | PDOC.DS.DS ---
Provider - Provider Date of Admission: 05/19/20 15:39 Date of Discharge: 05/26/20 Admitting Provider: Radha Saleem MD Consultations: Cardiology (Dr. Johnson) Primary Care Physician: [facility] Course - Hospital Course Hospital Course: Discharge diagnoses: 1. Acute on chronic systolic congestive heart failure 2. Cardiomyopathy 3. Hyponatremia 4. COVID-19 PCR test negative 5. Methamphetamine use Hospital course: Patient is a pleasant 64-year-old gentleman who was admitted to the hospital on May 19, 2020 for congestive heart failure exacerbation. He was treated with diuretics. He was seen by cardiology service. 2D echocardiogram showed left ventricle ejection fraction of 20 to 25%, mildly dilated left atrium, moderately increased left ventricular size, severe mitral regurgitation and moderate to severe tricuspid regurgitation. He underwent cardiac catheterization. He had lesion on mid LAD, proximal subsection, 20% stenosis, 11 mm length and a lesion in the RCA, proximal RCA, 30% stenosis in 15 mm length. He improved clinically. He is being discharged home. He is being fitted with LifeVest prior to discharge. Many thanks for allowing me to participate in your patient's care. Please feel free to contact me with any questions or concerns. Discharge destination: Home Total amount of time spent coordinating this discharge: 32 minutes Resuscitation Status: 05/19/20 09:39 Resuscitation Status Routine Resuscitation Status: FULL: Full Resuscitation - Labs Lab Results: 05/23/20 03:46 05/23/20 03:46 Microbiology - Entire Visit 05/23/20 10:46 Venous blood - Left Hand Blood Culture - Preliminary NO GROWTH AT 48 HOURS 05/23/20 10:46 Venous blood - Right Hand Blood Culture - Preliminary NO GROWTH AT 48 HOURS - Physical Exam Vitals: Vital Signs (12 hours) Temp Pulse Resp BP BP Pulse Ox 05/26/20 12:40 97.7 F 74 17 81/52 L 100 05/26/20 08:59 93 L 05/26/20 08:50 97.9 F 79 16 107/65 93 L 05/26/20 03:24 97.7 F 106 H 22 H 102/57 L 93 L Weight Weight 187 lb 3.2 oz Physical Exam: The patient was seen and examined on the day of discharge. Patient denies chest pain or shortness of breath. Vital signs are stable. S1 and S2 are heard. Lungs are clear to auscultation bilaterally. Plan - Discharge Medications Prescriptions: Spironolactone [Aldactone] 25 mg PO QAM-WM #30 tab Aspirin Chewable [Aspirin Chewable Tablet] 81 mg PO DAILY #30 tab Carvedilol [Coreg] 3.125 mg PO BID #60 tab Ivabradine [Corlanor] 5 mg PO BID #60 tab Sacubitril/Valsartan [Entresto 24 mg-26 mg Tablet] 0.5 tab PO BID #15 tab Atorvastatin Calcium [Lipitor] 40 mg PO HS #30 tab Home Medications: Medication Instructions Recorded Confirmed Type Aspirin Chewable [Aspirin Chewable 81 mg PO DAILY #30 tab 05/26/20 Rx Tablet] Atorvastatin Calcium [Lipitor] 40 mg PO HS #30 tab 05/26/20 Rx Carvedilol [Coreg] 3.125 mg PO BID #60 tab 05/26/20 Rx Ivabradine [Corlanor] 5 mg PO BID #60 tab 05/26/20 Rx Sacubitril/Valsartan [Entresto 24 0.5 tab PO BID #15 tab 05/26/20 Rx mg-26 mg Tablet] Spironolactone [Aldactone] 25 mg PO QAM-WM #30 tab 05/26/20 Rx Allergies: codeine Allergy (Verified 05/19/20 15:54) - Follow up Plan Referrals: Cardiac Rehab - [facility] [Outside] - 7 Days (Your doctor has ordered outpatient cardiac rehab for you to begin within 1-2 weeks after you go home from the hospital. The location nearest to you is the [facility]. Should you have any trouble or need assistance, please call the cardiac rehab main line in [place] at [phone]. ) [facility] [Primary Care Provider] - 3 Days Disposition: HOME Quality - Care Measures CORE MEASURES:: HF - Stroke/TIA Did you prescribe antithrombotic therapy?: Yes Did you prescribe anticoagulant for A Fib/Flutter?: No Specify reason for no DC anticoagulant: Treatment not indicated Did you prescribe a statin medication?: Yes
[2020-05-26 15:59] VITALS: BP 91/61; TEMP 97.3
[2020-05-26] MEDS: Calcium Carbonate 500 MG ChewTAB PO PRN (17:35)
== END 2020-05-26 18:35 | disposition home or self-care (01) | DRG 286 ==
LOC: ERS 06:32 → 2NO 15:39
PROVIDERS: ADMIT Internal Medicine; ATTEND Internal Medicine
PROC: 8E0ZXY6 Isolation (ICD-10-PCS; 2020-05-19)
PROC: 5A09357 Assistance with Respiratory Ventilation, Less than 24 Consecutive Hours, Continuous Positive Airway Pressure (ICD-10-PCS; 2020-05-19)
PROC: 4A023N7 Measurement of Cardiac Sampling and Pressure, Left Heart, Percutaneous Approach (ICD-10-PCS; principal; 2020-05-23)
PROC: B2111ZZ Fluoroscopy of Multiple Coronary Arteries using Low Osmolar Contrast (ICD-10-PCS; 2020-05-23)
PROC: B2151ZZ Fluoroscopy of Left Heart using Low Osmolar Contrast (ICD-10-PCS; 2020-05-23)
DX: I11.0 Hypertensive heart disease with heart failure (principal); J96.01 Acute respiratory failure with hypoxia; G93.41 Metabolic encephalopathy; E87.1 Hypo-osmolality and hyponatremia; I47.2 Ventricular tachycardia; I50.23 Acute on chronic systolic (congestive) heart failure; Z20.828 Contact with and (suspected) exposure to other viral communicable diseases; I08.1 Rheumatic disorders of both mitral and tricuspid valves; J44.9 Chronic obstructive pulmonary disease, unspecified; E66.9 Obesity, unspecified; F17.210 Nicotine dependence, cigarettes, uncomplicated; F15.10 Other stimulant abuse, uncomplicated; F12.10 Cannabis abuse, uncomplicated; F14.10 Cocaine abuse, uncomplicated; E11.65 Type 2 diabetes mellitus with hyperglycemia; F41.9 Anxiety disorder, unspecified; I42.8 Other cardiomyopathies; I95.9 Hypotension, unspecified; D72.829 Elevated white blood cell count, unspecified; E83.42 Hypomagnesemia; Z28.21 Immunization not carried out because of patient refusal; Z88.5 Allergy status to narcotic agent; Z68.28 Body mass index [BMI] 28.0-28.9, adult; Z90.49 Acquired absence of other specified parts of digestive tract
CPT/HCPCS: 36415; 36416; 51702; 71045; 80048; 80053; 80306; 80307; 81001; 82553; 83735; 83880; 84443; 84484; 85025; 87040; 93005; 93306; 93458; 93798; 94660; 94760; 96374; 96375; 99152; J1644; J1650; J1815; J1940; J2060; J2250; J2405; J2920; J3475; J7620; Q9967; S0028; U0002

== ENCOUNTER 2020-06-06 18:50 | Inpatient (IN) | payer OTHER ==
[2020-06-06] MEDS ORDERED: Lorazepam 2 MG/ML VIAL ONE (19:18)
[2020-06-06] MEDS ORDERED: Furosemide 40 MG/4 ML VIAL ONE (19:25)
--- NOTE | 2020-06-06 19:29 | RAD ---
EXAM: Single view of the chest HISTORY: Dyspnea COMPARISON: 05/23/2020 FINDINGS: Single view of the chest shows an enlarged but stable cardiomediastinal silhouette. There is bilateral pulmonary vascular enlargement. There is no evidence of consolidation, mass, or pleural effusion. Degenerative changes are seen in the spine. IMPRESSION: No evidence of acute cardiopulmonary disease
[2020-06-06 19:31] LABS: #Eosinphils 0.2 thou/uL (0.0-0.7); #Lymphocytes 1.3 thou/uL (1.20-3.40); #Monocytes 0.8 thou/uL (0.11-0.59); #Neutrophils 7.9 thou/uL (1.40-6.50); %Basophils 0.4 % (0.0-1.0); %Eosinophils 1.5 % (0.0-10.0); %Lymphocytes 12.8 % (21.0-51.0); %Monocytes 7.4 % (0.0-10.0); %Neutrophils 77.9 % (42.0-75.0); Hemoglobin 13.1 g/dL (14.0-18.0); Mean Corpuscular HGB CONC 32.4 g/dL (32.0-36.0); Mean Corpuscular Hemoglobin 29.9 pg (27.0-31.0); Mean Corpuscular Volume 92.3 fL (78.0-98.0); Mean Platelet Volume 9.6 fL (7.4-10.4); Platelet Count 149 thou/uL (130-400); RBC Distribution Width 18.1 % (11.5-14.5); Red Blood Cell (RBC) Count 4.37 mill/uL (4.70-6.10); White Blood Cell (WBC) Count 10.1 thou/uL (4.8-10.8)
[2020-06-06 19:47] LABS: Actual Bicarbonate (HCO3a) 13.7 mEq/L (22-28); Base Excess (BEa) -7.2 mEq/L (-2.0 to +3.0); Calcium, Ionized (arterial) 1.07 mmol/L (1.12-1.30); Carboxyhemoglobin (COHb) 1.2 gm% (0.0-3.0); Hemoglobin (Hb) 13.4 g/dL (14.0-18.0); O2 Tension (PaO2), arterial 70.6 mmHg (> 80.0); Potassium - ABG Lab 4.03 mmol/L (3.70-5.30); pH, Arterial 7.48 (7.35-7.45)
[2020-06-06] MEDS ORDERED: Rocuronium Bromide 10 MG/ML (10ML VIAL) ONE (19:51)
[2020-06-06] MEDS ORDERED: Fentanyl 100 MCG/2 ML VIAL ONE (19:51)
[2020-06-06 20:03] LABS: ALT (SGPT) 25 U/L (8-55); AST (SGOT) 48 U/L (5-34); Alkaline Phosphatase 188 U/L (40-110); Anion Gap 22 mmol/L (10-20); BUN (Urea Nitrogen) 20 mg/dL (8.4-25.7); Bilirubin, Total 4.2 mg/dL (0.2-1.2); Calc. Creatinine Clearance 0 mL/min (70-130); Calcium 8.2 mg/dL (7.8-10.44); Carbon Dioxide 16 mmol/L (23-31); Chloride 99 mmol/L (98-107); Glucose 232 mg/dL (80-115); Potassium 4.1 mmol/L (3.5-5.1); Sodium 133 mmol/L (136-145)
[2020-06-06 20:36] LABS: Actual Bicarbonate (HCO3a) 16.1 mEq/L (22-28); Base Excess (BEa) -7.9 mEq/L (-2.0 to +3.0); CO2 Tension 28.6 mmHg (35.0-45.0); Calcium, Ionized (arterial) 1.09 mmol/L (1.12-1.30); Hemoglobin (Hb) 12.8 g/dL (14.0-18.0); Potassium - ABG Lab 3.46 mmol/L (3.70-5.30); pH, Arterial 7.37 (7.35-7.45)
[2020-06-06 20:49] LABS: CO2 Tension 18.6 mmHg (35.0-45.0); Puncture Site LRA
[2020-06-06 20:52] LABS: Puncture Site LRA
--- NOTE | 2020-06-06 20:53 | RAD ---
EXAM: Single view of the chest HISTORY: Respiratory failure status post intubation COMPARISON: 06/06/2020 FINDINGS: Single view of the chest shows an enlarged but stable cardiomediastinal silhouette. Bilater al pulmonary vascular enlargement is seen. There is an endotracheal tube extending down the right mainstem bronchus and should be withdrawn approximately 3.5 cm. An NG tube is seen in the stomach. T here is obscurity of the left hemidiaphragm which may represent atelectasis or an infiltrate. No acute osseous abnormality. IMPRESSION: 1. Right mainstem intubation. The endotracheal tube should be withdrawn approximately 3.5 cm. 2. Left basilar atelectasis versus infiltrate.
[2020-06-06] MEDS ORDERED: Cefepime 2 GM VIAL ONE (21:35)
[2020-06-06] MEDS ORDERED: Vancomycin HCl 1.75 GM in Sodium Chloride 0.9% 500 ML IVPB SCH (21:45)
[2020-06-06 21:57] LABS: CKMB 3.5 ng/mL (0-6.6)
--- NOTE | 2020-06-06 22:00 | RAD ---
EXAM: Single view of the chest HISTORY: Repositioning of endotracheal tube COMPARISON: 06/06/2020 at 8:09 PM FINDINGS: Single view of the chest shows an enlarged but stable cardiomediastinal silhouette. Athero sclerotic calcifications are seen in the aorta. The endotracheal tube has been withdrawn with its tip in good position at the lower border of the clavicles. There is stable left lower lobe atelectasi s versus infiltrate. Increased interstitial markings are present. Degenerative changes are seen in the spine. IMPRESSION: Appropriate position of endotracheal tube
[2020-06-06 22:09] LABS: SARS-CoV-2 NAA Rapid Test Not Detected (NotDetected)
[2020-06-06] MEDS ORDERED: Midazolam HCl 2 mg/2 ml Vial ONE (22:24)
--- NOTE | 2020-06-06 22:55 | CT ---
EXAM: CTA of the chest HISTORY: Respiratory distress and elevated d-dimer COMPARISON: 05/13/2020 TECHNIQUE: Multiple contiguous axial images were obtained a CTA of the chest with contrast per pulmon shonda embolism protocol. 3-D oblique MIP reformats and direct coronal reformats were performed. FINDINGS: An endotracheal tube is seen in good position above the jessica. An NG tube is seen in the stomach. HEART: Normal in size without focal cardiac abnormality. PULMONARY ARTERIES: Normal in caliber. There may be filling defects in the pulmonary arterial branche s of the bilateral lower lobes. MEDIASTINUM: No hilar or mediastinal lymphadenopathy. LUNGS: No focal infiltrates or masses. PLEURAL SPACE: There are small bilateral pleural effusions with adjacent atelectasis versus infiltrat e. CHEST WALL SOFT TISSUES: Few soft tissue anasarca. VISUALIZED OSSEOUS STRUCTURES: Degenerative changes in the spine. VISUALIZED SUBDIAPHRAGMATIC STRUCTURES: Small ascites. IMPRESSION: 1. Likely small pulmonary artery emboli in the bilateral lower lobes 2. Small bilateral pleural effusions with adjacent atelectasis versus infiltrate.
[2020-06-06 23:17] LABS: INR-International Normal Ratio 1.7; PTT 43.1 sec (22.9-36.1); Prothrombin Time 20.6 sec (12.0-14.7)
[2020-06-06 23:19] LABS: Lactic Acid 2.6 mmol/L (0.5-2.2)
[2020-06-07] MEDS ORDERED: Enoxaparin Sodium 80 MG/0.8 ML SYRINGE ONE (00:31)
--- NOTE | 2020-06-07 01:08 | PDOC.HHP ---
Hospitalist HPI - History of Present Illness Hypoxia History of Present Illness: This is a 64-year-old male patient with a history of heart failure with reduced ejection fraction was brought in by EMS from his short-term on account of severe hypoxia. Patient was brought in by EMS. They noted patientwas tachycardic with heart rate 120 and in in significant distress According to EMS he was found hypoxic with oxygen in the 70s and 80s in significant respiratory distress. He was put on a nonrebreather and brought in here. On arrival he was agitated and initially was placed on BiPAP however he could not tolerated and therefore decision was made to intubate him. Patient was recently discharged on 05/26/2020 on account of CHF exacerbation at the time ejection fraction was 20%. He had multiple vascular lesions however is unclear whether he was intubated. His lactic acid was elevated at 7.3 at presentation with improvement to 2.6. Sodium was 133, creatinine was 1.02, glucose was 232, alkaline phosphate elevated at 188. His D-dimer was elevated at 8.23 and hemoglobin was at 13.1. CTA thorax showed likely small pulmonary emboli in bilateral lower lobes and bilateral pleural effusions with adjacent atelectasis. He initially got a bolus of 30 mils per KG normal saline however was subsequently diuresed with 40 mg Lasix. He also received cefepime and vancomycin to cover for possible sepsis. Also received breathing treatments with ipratropiumalbuterol. Hospitalist team was consulted for admission. Hospitalist ROS - Review of Systems ROS unobtainable: due to endotracheal tube Hospitalist History - Past Medical History Other Medical History: Coronary artery disease, COPD, diabetes mellitus, - Past Surgical History Other Surgical History: appendectomy - Family History Family History: reports: no pertinent history - Social History Smoking Status: Current every day smoker Living Situation: Alone Activity level: independent ambulation - Exam General - other findings: Patient intubated Eye: PERRL, anicteric sclera Heart: RRR, no murmur, no gallops Respiratory - other findings: Mechanical breath sounds bilateral. No rhonchi rales Gastrointestinal: soft, non-distended, normal bowel sounds Extremities: no cyanosis, no clubbing, no edema Neurological - other findings: Unable to assess Psychiatric - other findings: Unable to assess Hospitalist Results - Labs Result Diagrams: 06/08/20 03:15 06/08/20 03:15 Lab results: WBC 10.1 thou/uL (4.8-10.8) 06/06/20 19:06 Hgb 13.1 g/dL (14.0-18.0) L 06/06/20 19:06 Hct 40.3 % (42.0-52.0) L 06/06/20 19:06 MCV 92.3 fL (78.0-98.0) 06/06/20 19:06 Plt Count 149 thou/uL (130-400) 06/06/20 19:06 Neutrophils % 77.9 % (42.0-75.0) H 06/06/20 19:06 ABG pH 7.37 (7.35-7.45) 06/06/20 20:28 ABG pCO2 28.6 mmHg (35.0-45.0) L 06/06/20 20:28 ABG pO2 85.0 mmHg (> 80.0) H 06/06/20 20:28 Sodium 133 mmol/L (136-145) L 06/06/20 19:06 Potassium 4.1 mmol/L (3.5-5.1) 06/06/20 19:06 Chloride 99 mmol/L (98-107) 06/06/20 19:06 Carbon Dioxide 16 mmol/L (23-31) L 06/06/20 19:06 BUN 20 mg/dL (8.4-25.7) 06/06/20 19:06 Creatinine 1.02 mg/dL (0.7-1.3) 06/06/20 19:06 Glucose 232 mg/dL (80-115) H 06/06/20 19:06 Lactic Acid 2.6 mmol/L (0.5-2.2) H 06/06/20 22:51 Calcium 8.2 mg/dL (7.8-10.44) 06/06/20 19:06 Total Bilirubin 4.2 mg/dL (0.2-1.2) H 06/06/20 19:06 AST 48 U/L (5-34) H 06/06/20 19:06 ALT 25 U/L (8-55) 06/06/20 19:06 Alkaline Phosphatase 188 U/L (40-110) H 06/06/20 19:06 CK-MB (CK-2) 3.5 ng/mL (0-6.6) 06/06/20 20:44 Troponin I 0.022 ng/mL (< 0.028) 06/06/20 22:51 B-Natriuretic Peptide 2528.4 pg/mL (0-100) H 06/06/20 19:06 Serum Total Protein 7.0 g/dL (5.8-8.1) 06/06/20 19:06 Albumin 3.0 g/dL (3.4-4.8) L 06/06/20 19:06 Hospitalist H&P A/P - Plan Plan: This is a 64-year-old male patient with a history of coronary artery disease, CHF with reduced ejection fraction presenting with acute hypoxic respiratory failure secondary to CHF exacerbation, small pulmonary emboli requiring intubation. Acute hypoxic respiratory failure In the setting of COPD/heart failure exacerbation/PE Initially on BiPAP however was required intubation We will continue monitoring intubated Pulmonology consult. Heart failure exacerbation Last EF 20 to 25% Unclear whether he has been adherent to his medication Received IV fluids however also got diuresis Good diuresis needed Monitor Cardiac consult in a.m. Lactic acidosis Likely secondary to heart failure and hypoxemia Trending downunlikely infection We will continue monitoring Diabetes mellitus Correctional insulin Monitor glucose VT prophylaxisLovenox CODE STATUSfull code I called his web weaver to discuss CODE STATUS. She was uncertain and this will be discussed further
[2020-06-07] MEDS ORDERED: Dextrose 50% Abboject 50 ML SYRINGE SLOW IVP PRN (01:20)
[2020-06-07] MEDS ORDERED: Dextrose 5% in Water 1,000 ML IV PRN (01:20)
[2020-06-07] MEDS ORDERED: Fentanyl BOLUS 250 ML IVPB PRN (02:15)
[2020-06-07] MEDS ORDERED: Morphine 2 MG/ML VIAL SLOW IVP PRN (02:15)
[2020-06-07] MEDS ORDERED: Propofol 1,000 MG/100 ML VIAL IV PRN (02:15)
[2020-06-07] MEDS ORDERED: Propofol BOLUS 1,000 MG/100 ML VIAL IV PRN (02:15)
[2020-06-07 04:06] LABS: Anion Gap 13 mmol/L (10-20); BUN (Urea Nitrogen) 17 mg/dL (8.4-25.7); Calc. Creatinine Clearance 103 mL/min (70-130); Calcium 7.3 mg/dL (7.8-10.44); Carbon Dioxide 21 mmol/L (23-31); Chloride 104 mmol/L (98-107); Glucose 133 mg/dL (80-115); Potassium 3.4 mmol/L (3.5-5.1); Sodium 135 mmol/L (136-145)
[2020-06-07 04:10] LABS: Troponin I 0.027 ng/mL (< 0.028)
[2020-06-07] MEDS: fentaNYL Citrate/PF 2,000 MCG in Sodium Chloride 0.9% 60 ML IV SCH ×2 (04:12→14:23)
[2020-06-07 04:14] LABS: Hemoglobin 10.6 g/dL (14.0-18.0); Mean Corpuscular HGB CONC 32.3 g/dL (32.0-36.0); Mean Corpuscular Hemoglobin 29.5 pg (27.0-31.0); Mean Corpuscular Volume 91.2 fL (78.0-98.0); Mean Platelet Volume 9.6 fL (7.4-10.4); Platelet Count 123 thou/uL (130-400); RBC Distribution Width 18.1 % (11.5-14.5); Red Blood Cell (RBC) Count 3.61 mill/uL (4.70-6.10); White Blood Cell (WBC) Count 7.1 thou/uL (4.8-10.8)
[2020-06-07 04:19] LABS: #Eosinphils 0.1 thou/uL (0.0-0.7); #Monocytes 0.6 thou/uL (0.11-0.59); #Neutrophils 5.3 thou/uL (1.40-6.50); %Basophils 0.3 % (0.0-1.0); %Lymphocytes 14.5 % (21.0-51.0); %Monocytes 7.9 % (0.0-10.0); %Neutrophils 75.3 % (42.0-75.0)
[2020-06-07] MEDS: Lorazepam 2 MG/ML VIAL SLOW IVP PRN (04:58)
[2020-06-07 07:00] LABS: Actual Bicarbonate (HCO3a) 19.9 mEq/L (22-28); Base Excess (BEa) -2.5 mEq/L (-2.0 to +3.0); CO2 Tension 26.9 mmHg (35.0-45.0); Calcium, Ionized (arterial) 1.07 mmol/L (1.12-1.30); Carboxyhemoglobin (COHb) 0.6 gm% (0.0-3.0); Hemoglobin (Hb) 11.1 g/dL (14.0-18.0); O2 Tension (PaO2), arterial 84.2 mmHg (> 80.0); Potassium - ABG Lab 2.99 mmol/L (3.70-5.30); pH, Arterial 7.49 (7.35-7.45)
[2020-06-07 07:19] LABS: Troponin I 0.022 ng/mL (< 0.028)
[2020-06-07 07:36] LABS: ALV-art Gradient 167.375 mmHg (0-20); Puncture Site LRA
[2020-06-07] MEDS: Famotidine/PF 20 mg/2ml Vial SLOW IVP SCH ×2 (08:00→19:42)
[2020-06-07] MEDS: Enoxaparin Sodium 40 MG/0.4 ML SYRINGE SC SCH (08:00)
[2020-06-07] MEDS: Furosemide 40 MG/4 ML VIAL SLOW IVP SCH (08:00)
--- NOTE | 2020-06-07 09:38 | CON ---
DATE OF CONSULTATION: SUBJECTIVE: The patient is a 64-year-old gentleman with a history of a severe cardiomyopathy, who presented with acute dyspnea. The patient was seen earlier this month with congestive heart failure. The patient underwent a cardiac catheterization. He was found to have a severe decrease in left ventricular systolic function with an estimated ejection fraction of 10% to 15%. The patient was found to have only mild coronary artery disease. The patient was admitted to the hospital with respiratory failure and was emergently intubated. PAST MEDICAL HISTORY: 1. Congestive heart failure. 2. Diabetes mellitus. 3. Hypertension. 4. COPD. PAST SURGICAL HISTORY: Appendectomy. SOCIAL HISTORY: He has a long history of cocaine use. MEDICATIONS: Unknown. ALLERGIES: CODEINE. PHYSICAL EXAMINATION: GENERAL: Intubated gentleman. VITAL SIGNS: With a blood pressure of 90/60. NECK: No jugular venous distention. LUNGS: Crackles in both lung white. HEART: Regular rate and rhythm. Normal S1, S2 with a holosystolic murmur. ABDOMEN: Distended. EXTREMITIES: Mild bilateral edema. LABORATORY DATA: White blood count 7.1, hemoglobin 10.6, hematocrit 32.9, platelets are 123. Sodium is 135, potassium 3.4, chloride 104, bicarbonate 21, BUN 17, creatinine 0.85, glucose 133. Troponin was 0.22. EKG sinus tachycardia, right bundle-branch block. Q-waves suggestive of previous inferior infarct. IMPRESSION: 1. Congestive heart failure. 2. Severe cardiomyopathy. 3. Severe mitral regurgitation. 4. Diabetes mellitus. 5. Hypertension. 6. History of illicit drug use. This gentleman presents in respiratory failure. I will add spironolactone to his medical regimen. The patient is being diuresed with Lasix. The patient's blood pressure is being supported with Levophed. The patient's prognosis is extremely guarded. We will follow this patient with you through his hospitalization. 30 minutes critical care. Job ID: [id number] [facility]
[2020-06-07] MEDS: Spironolactone 25 MG TAB PO SCH (09:47)
--- NOTE | 2020-06-07 09:57 | RAD ---
CHEST 1 VIEW: Date: 06/06/2020 INDICATION: History of respiratory distress. COMPARISON: Prior exam dated 06/06/2020. FINDINGS: There is mild cardiomegaly and mild pulmonary vascular congestion. The patient is intubated with julio marielle catheter placement. There is a right subclavian central venous catheter in place. There are tiny bilateral pleural effusions. No pneumothorax is evident. IMPRESSION: 1. Cardiomegaly and pulmonary vascular congestion with small bilateral pleural effusions. 2. ET tube, gastric catheter, and right subclavian central venous catheter project in the expected p osition. 3. No pneumothorax. POS: BH
[2020-06-07] MEDS: Digoxin 0.5 MG/2 ML AMP SLOW IVP SCH ×3 (11:38→16:42)
[2020-06-07 12:18] LABS: Amphetamine Not Detected (NotDetected); Barbiturates Screen Not Detected (NotDetected); Benzodiazepine Screen Not Detected (NotDetected); Cocaine Metabolite Screen Not Detected (NotDetected); Medtox Control Line Valid? VALID (VALID); Medtox Reader # READER 1; Methadone Not Detected (NotDetected); Methamphetamine Not Detected (NotDetected); Opiate Screen Not Detected (NotDetected); Oxycodone Screen Not Detected (NotDetected); Phencyclidine (PCP) Not Detected (NotDetected); THC/Cannabinoid Screen Not Detected (NotDetected); Tricyclic Screen Not Detected (NotDetected)
[2020-06-07] MEDS ORDERED: Electrolyte Replacement Protocol FS SCH (12:30)
[2020-06-07] MEDS ORDERED: HumaLOG 300 UNITS/3 ML VIAL SC PRN (12:34)
[2020-06-07] MEDS: D5 0.9% NS w/ 20 mEq KCl 1,000 ML IV SCH (13:13)
[2020-06-07] MEDS ORDERED: Haloperidol Lactate 5 MG/ML VIAL IM SCH (13:15)
[2020-06-07 13:54] LABS: Lactic Acid 1.2 mmol/L (0.5-2.2)
[2020-06-07 13:56] LABS: Anion Gap 14 mmol/L (10-20); BUN (Urea Nitrogen) 13 mg/dL (8.4-25.7); Calc. Creatinine Clearance 110 mL/min (70-130); Calcium 7.4 mg/dL (7.8-10.44); Carbon Dioxide 24 mmol/L (23-31); Chloride 104 mmol/L (98-107); Glucose 75 mg/dL (80-115); Sodium 139 mmol/L (136-145)
[2020-06-07 13:58] LABS: Magnesium 1.3 mg/dL (1.6-2.6); Phosphorus 2.4 mg/dL (2.3-4.7)
[2020-06-07] MEDS ORDERED: Potassium Chloride 40 MEQ in Sodium Chloride 0.9% 250 ML 250 ML IVPB SCH (14:00)
[2020-06-07 14:02] LABS: Potassium 2.9 mmol/L (3.5-5.1)
[2020-06-07] MEDS ORDERED: Potassium Chloride 40 MEQ in Premix Bag 1 BAG IVPB SCH (14:15)
[2020-06-07] MEDS ORDERED: Magnesium Sulfate 4 GM in Sodium Chloride 0.9% 250 ML 250 ML IVPB SCH (14:15)
[2020-06-07] MEDS: Haloperidol Lactate 5 MG/ML VIAL IM SCH ×2 (16:42→20:07)
--- NOTE | 2020-06-07 17:41 | CON ---
DATE OF CONSULTATION: 06/07/2020 HISTORY OF PRESENT ILLNESS: Mr. Chand is a 64-year-old male with a history of cardiomyopathy. His ejection fraction is 10% to 15%. He apparently presented short of breath last night. I am told he would not keep oxygen on and subsequently was intubated. PAST MEDICAL HISTORY: Remarkable for: 1. Cardiac catheterization showing minimal coronary artery disease. 2. History of diabetes. 3. Hypertension. 4. History of an appendectomy. 5. History of COPD. 6. Severe cardiomyopathy. 7. Status post recent hospitalization with heart failure. 8. Drug screen on 05/19 showed methamphetamine, this drug screen did not. FAMILY HISTORY: Negative for lung disease in early age. REVIEW OF SYSTEMS: Ten points not obtainable, unclear if he is smoking or drinking because he is intubated. PHYSICAL EXAMINATION: VITAL SIGNS: Blood pressure 101/66, heart rate 101, respiratory rates in the teens, and FiO2 is 40%. HEENT: Pupils are equal. Sclerae are anicteric. NECK: He has no cervical lymphadenopathy. LUNGS: Remarkable for distant breath sounds. HEART: Regular rhythm. S1 and S2 are normal. ABDOMEN: Soft and nontender. EXTREMITIES: He has no lower extremity edema. DIAGNOSTIC STUDIES: Chest radiograph showed mild pulmonary edema. White count 7.1, hemoglobin 10.6, and platelets 123. Sodium 139, potassium 2.9, chloride 104, bicarb 24, BUN 13, and creatinine 0.7. IMPRESSION: Respiratory failure associated with congestive heart failure. It is unclear whether or not he is taking his medicine, but it is unusual for someone to be back in a decompensated state if he is compliant with medicines. He is only discharged from the hospital 2 weeks ago. We will mechanically ventilate him because he has been considered spontaneous breathing trial tomorrow if he is stable. He is very agitated when he is not deeply sedated, so I started some Haldol on him. TIME SPENT: 70-minute consult, 50% of the time was spent on the unit coordinating care. Job ID: [id number] MTDD
[2020-06-07 19:46] LABS: Anion Gap 15 mmol/L (10-20); BUN (Urea Nitrogen) 12 mg/dL (8.4-25.7); Calc. Creatinine Clearance 119 mL/min (70-130); Carbon Dioxide 23 mmol/L (23-31); Chloride 104 mmol/L (98-107); Glucose 69 mg/dL (80-115); Potassium 3.5 mmol/L (3.5-5.1); Sodium 138 mmol/L (136-145)
[2020-06-08] MEDS: fentaNYL Citrate/PF 2,000 MCG in Sodium Chloride 0.9% 60 ML IV SCH (00:54)
[2020-06-08] MEDS: Haloperidol Lactate 5 MG/ML VIAL IM SCH ×6 (00:59→20:10)
[2020-06-08 05:17] LABS: ALT (SGPT) 18 U/L (8-55); AST (SGOT) 35 U/L (5-34); Albumin 2.1 g/dL (3.4-4.8); Alkaline Phosphatase 123 U/L (40-110); Anion Gap 12 mmol/L (10-20); BUN (Urea Nitrogen) 12 mg/dL (8.4-25.7); Bilirubin, Total 2.9 mg/dL (0.2-1.2); Calc. Creatinine Clearance 104 mL/min (70-130); Calcium 7.1 mg/dL (7.8-10.44); Carbon Dioxide 25 mmol/L (23-31); Chloride 106 mmol/L (98-107); Glucose 71 mg/dL (80-115); Magnesium 1.7 mg/dL (1.6-2.6); Phosphorus 2.5 mg/dL (2.3-4.7); Potassium 3.5 mmol/L (3.5-5.1); Protein, Total 5.1 g/dL (5.8-8.1); Sodium 139 mmol/L (136-145)
[2020-06-08 05:27] LABS: Band 12 % (5-11); Eosinophils 2 % (0-10); Hemoglobin 12.1 g/dL (14.0-18.0); Lymphocytes 6 % (21-51); MDiff Complete? YES; Mean Corpuscular HGB CONC 31.8 g/dL (32.0-36.0); Mean Corpuscular Hemoglobin 29.3 pg (27.0-31.0); Mean Corpuscular Volume 92.2 fL (78.0-98.0); Mean Platelet Volume 9.9 fL (7.4-10.4); Monocytes 5 % (0-10); Neutrophil 74 % (42-75); Platelet Count 122 thou/uL (130-400); Red Blood Cell (RBC) Count 4.12 mill/uL (4.70-6.10); White Blood Cell (WBC) Count 7.9 thou/uL (4.8-10.8)
[2020-06-08 05:37] LABS: INR-International Normal Ratio 1.6; Prothrombin Time 19.1 sec (12.0-14.7)
[2020-06-08 07:41] LABS: Actual Bicarbonate (HCO3a) 23.9 mEq/L (22-28); Base Excess (BEa) 0.7 mEq/L (-2.0 to +3.0); CO2 Tension 33.7 mmHg (35.0-45.0); Calcium, Ionized (arterial) 1.07 mmol/L (1.12-1.30); Carboxyhemoglobin (COHb) 0.7 gm% (0.0-3.0); Hemoglobin (Hb) 12.4 g/dL (14.0-18.0); O2 Tension (PaO2), arterial 77.8 mmHg (> 80.0); Potassium - ABG Lab 3.36 mmol/L (3.70-5.30); pH, Arterial 7.47 (7.35-7.45)
[2020-06-08 07:43] LABS: Puncture Site RRA
[2020-06-08 07:44] LABS: ALV-art Gradient 165.275 mmHg (0-20)
[2020-06-08] MEDS ORDERED: Magnesium 2 GM/50 ML 2 GM in Premix Bag 1 BAG IVPB SCH (07:45)
[2020-06-08] MEDS ORDERED: Potassium Chloride 40 MEQ in Sodium Chloride 0.9% 250 ML 250 ML IVPB SCH (07:45)
--- NOTE | 2020-06-08 07:57 | RAD ---
Chest AP view INDICATION: Daily ccu exam COMPARISON: June 06, 2020 FINDINGS: Lungs: There is worsening of bilateral lower lobe airspace disease suspicious for edema. Cardiac silhouette: There is persistent cardiomegaly Pulmonary vasculature: There is worsening pulmonary vascular congestion Pleural spaces: There are worsening bilateral pleural effusions. No pneumothorax. Upper abdomen: No abnormality seen. Osseous structures: No acute osseous abnormality. Additional findings: ET tube, gastric catheter and right subclavian central venous catheter are unch anged. IMPRESSION: Worsening volume overload or CHF
[2020-06-08] MEDS: Spironolactone 25 MG TAB PO SCH (08:10)
[2020-06-08] MEDS: Enoxaparin Sodium 40 MG/0.4 ML SYRINGE SC SCH (08:10)
[2020-06-08] MEDS: Famotidine/PF 20 mg/2ml Vial SLOW IVP SCH ×2 (08:10→20:10)
[2020-06-08] MEDS: cefTRIAXone\\ROCEPHIN 2 GM in Sodium Chloride 0.9% 100 ML IVPB SCH (08:10)
[2020-06-08] MEDS: Furosemide 40 MG/4 ML VIAL SLOW IVP SCH ×2 (08:11→14:25)
[2020-06-08] MEDS: D5 0.9% NS w/ 20 mEq KCl 1,000 ML IV SCH (10:11)
[2020-06-08] MEDS: Digoxin 0.5 MG/2 ML AMP SLOW IVP SCH (10:55)
--- NOTE | 2020-06-08 11:30 | PRG ---
DATE OF SERVICE: 06/08/2020 35 minutes of critical care time. SUBJECTIVE: The patient remains intubated on mechanical ventilation. There has been no acute changes overnight. OBJECTIVE: VITAL SIGNS: Temperature 98.3, pulse 105, blood pressure 97/58, O2 saturation 100%, 24-hour intake 1399 and output 4077, weight 179 pounds. HEENT: Unremarkable. NECK: He has some JVD. LUNGS: Diminished breath sounds at the bases. CARDIAC: S1 and S2. Slightly tachycardic. ABDOMEN: Soft and nontender. EXTREMITIES: Edematous throughout. LABORATORY DATA: ABG; pH 7.47, pCO2 of 33, pO2 of 77, SIMV rate 20, tidal volume 500, PEEP 5, pressure support 10, FiO2 40%. White blood cell count 7.9, hematocrit 38, and platelet count 122. Sodium 139, potassium 3.5, chloride 106, CO2 of 25, BUN 12, creatinine 0.8, glucose 71. His x-ray shows bilateral pleural effusions/pulmonary edema. ASSESSMENT: 1. Acute respiratory failure requiring mechanical ventilation. 2. Acute systolic heart failure with continued fluid overload. 3. Diabetes mellitus. 4. Severe mitral regurgitation. PLAN: I have lowered his respiratory rate on the vent so that he can start breathing spontaneously, but I do not think he is suitable for extubation at this time. He needs more diuretics. Those are written for in the chart by Dr. Johnson. He will be re-evaluated tomorrow for the potential for extubation. Job ID: [id number]
[2020-06-08] MEDS: Ivabradine 5 MG TAB PO SCH ×3 (11:56→20:10)
--- NOTE | 2020-06-08 21:53 | PDOC.HOSPP ---
- Subjective Encounter Date: 06/08/20 Encounter Time: 14:30 Subjective: Patient seen and examined for respiratory failure requiring mechanical ventilation. Sedation has been discontinued. Patient started on tube feeds. Events noted. - Objective Vital Signs & Weight: Vital Signs (12 hours) Temp Pulse Resp BP 06/08/20 18:38 106 H 92/52 L 06/08/20 18:00 16 06/08/20 16:00 98.4 F 15 06/08/20 14:53 113 H 96/56 L 06/08/20 14:00 15 06/08/20 12:00 98.2 F 17 06/08/20 11:20 112 H 97/58 L 06/08/20 10:55 111 H 06/08/20 10:00 20 Weight Admit Weight 187 lb Weight 179 lb 14.355 oz Most Recent Monitor Data Heart Rate from ECG 106 NIBP 91/63 NIBP BP-Mean 72 Respiration from ECG 16 SpO2 100 I&O: 06/07/20 06/08/20 06/09/20 06:59 06:59 06:59 Intake Total 542 1399 926 Output Total 605 4075 3585 [facility]63 [phone] Result Diagrams: 06/08/20 03:15 06/08/20 03:15 Additional Labs: Accuchecks 06/08/20 06/08/20 06/08/20 20:12 15:56 12:05 POC Glucose 86 91 82 06/08/20 06/08/20 06/08/20 07:35 04:34 00:28 POC Glucose 71 76 73 06/07/20 16:54 POC Glucose 65 L Abnormal Lab Results - Last 48 hrs 06/06/20 19:06: B-Natriuretic Peptide 2528.4 H 06/06/20 19:06: PT 20.6 H, APTT 43.1 H 06/06/20 22:51: Lactic Acid 2.6 H 06/07/20 03:10: Sodium 135 L, Potassium 3.4 L, Carbon Dioxide 21 L, Calcium 7.3 L 06/07/20 03:10: RBC 3.61 L, Hgb 10.6 L, Hct 32.9 L, RDW 18.1 H, Plt Count 123 L, Neutrophils % 75.3 H, Lymphocytes % 14.5 L, Lymphocytes # 1.0 L, Monocytes # 0.6 H 06/07/20 06:52: Bicarbonate Actual 19.9 L, ABG pH 7.49 H, ABG pCO2 26.9 L, ABG pO2 84.2 H, ABG O2 Content 15.1 L, ABG Base Excess -2.5 L, ABG Hematocrit 33.0 L, ABG Hemoglobin 11.1 L, ABG Deoxyhemoglobin 3.1 H, A-a O2 Gradient 167.375 H, Ionized Calcium 1.07 L, Sodium 133 L, Potassium 2.99 L 06/07/20 13:16: Magnesium 1.3 L 06/07/20 13:16: Potassium 2.9 L*, Calcium 7.4 L 06/07/20 19:02: Calcium 7.0 L 06/08/20 03:15: RBC 4.12 L, Hgb 12.1 L, Hct 38.0 L, MCHC 31.8 L, RDW 19.0 H, Plt Count 122 L, Band Neuts % (Manual) 12 H, Lymphocytes % (Manual) 6 L 06/08/20 03:15: Calcium 7.1 L, Total Bilirubin 2.9 H, AST 35 H, Alkaline Phosphatase 123 H, Serum Total Protein 5.1 L, Albumin 2.1 L, Albumin/Globulin Ratio 0.7 L 06/08/20 03:15: PT 19.1 H, APTT 41.0 H 06/08/20 07:40: ABG pH 7.47 H, ABG pCO2 33.7 L, ABG O2 Content 16.7 L, ABG Hematocrit 36.0 L, ABG Hemoglobin 12.4 L, ABG Deoxyhemoglobin 3.7 H, A-a O2 Gradient 165.275 H, Chloride 107 H, Ionized Calcium 1.07 L, Sodium 134 L, Potassium 3.36 L Microbiology - Entire Visit 06/06/20 19:20 Venous blood - Neck Blood Culture - Preliminary NO GROWTH AT 48 HOURS 06/06/20 19:18 Venous blood - Left Arm Blood Culture - Preliminary NO GROWTH AT 48 HOURS 06/06/20 20:36 Nasal swab Influenza Types A,B Direct EIA - Final Radiology Reviewed by me: Yes (Chest x-rayCHF) EKG Reviewed by me: Yes (Sinus rhythm on telemetry) Hospitalist ROS - Review of Systems ROS unobtainable: due to mental status - Medication Medications: Active Medications Generic Name Dose Route Start Last Admin Trade Name Freq PRN Reason Stop Dose Admin Digoxin 0.25 mg 06/08/20 09:00 06/08/20 10:55 Digoxin 0.5 Mg/2 Ml Amp SLOW IVP 0.25 mg QAM MYRA Administration Enoxaparin Sodium 40 mg 06/07/20 09:00 06/08/20 08:10 Enoxaparin Sodium 40 Mg/0.4 Ml Syringe SC 40 mg 0900 MYRA Administration Famotidine 20 mg 06/07/20 09:00 06/08/20 20:10 Famotidine/Pf 20 Mg/2ml Vial SLOW IVP 20 mg Q12HR MYRA Administration Furosemide 40 mg 06/08/20 14:00 06/08/20 14:25 Furosemide 40 Mg/4 Ml Vial SLOW IVP 40 mg 0600,1400 MYRA Administration Haloperidol Lactate 5 mg 06/07/20 17:00 06/08/20 20:10 Haloperidol Lactate 5 Mg/Ml Vial IM 5 mg Q4HR MYRA Administration Fentanyl Citrate 2,000 mcg/ 100 mls @ 0 mls/hr 06/06/20 20:00 06/08/20 00:54 Sodium Chloride IV 07/06/20 20:00 100 mls INF MYRA Administration Protocol Per Protocol Potassium Chloride/Dextrose/Sod Cl 1,000 mls @ 50 mls/hr 06/07/20 12:30 06/08/20 10:11 D5 0.9% Ns W/ 20 Meq Kcl IV 1,000 mls .Q20H MYRA Administration Ceftriaxone Sodium 2 gm/ 100 mls @ 200 mls/hr 06/08/20 09:00 06/08/20 08:10 Sodium Chloride IVPB 100 mls DAILY MYRA Administration Ivabradine 5 mg 06/08/20 10:05 06/08/20 20:10 Ivabradine 5 Mg Tab PO 5 mg BID MYRA Administration Lorazepam 2 mg 06/07/20 02:15 06/07/20 04:58 Lorazepam 2 Mg/Ml Vial SLOW IVP 07/07/20 02:15 2 mg Q1H PRN Administration Breakthrough agitation Sodium Chloride 10 ml 06/07/20 09:00 06/08/20 20:11 Flush - Normal Saline 10 Ml Syringe IVF 10 ml Q12HR MYRA Administration - Exam General Appearance: ill appearing General - other findings: On mechanical ventilation Neck: supple, symmetric Heart: RRR, no gallops, no rubs, normal peripheral pulses Respiratory: no wheezes, normal chest expansion, rales, rhonchi Gastrointestinal: soft, normal bowel sounds, no guarding, no rigidity Extremities: no cyanosis, no clubbing Psychiatric - other findings: Neuro/psych exam limited due to current mentation Hosp A/P - Plan DVT proph w/SCDs Acute hypoxic respiratory failure Acute on chronic systolic heart failure exacerbation Hypotension requiring pressors Coronary artery disease Severe mitral regurgitation Hypokalemia/hypomagnesemia Moderate to severe tricuspid regurgitation Hypertension COPD Diabetes mellitus type 2 Urine drug screen positive for methamphetamine last admission Plan: Change IV fluid to KVO. Continue tube feeds. Empiric antibiotics. Continue Lasix with Spironolactone. DVT and GI prophylaxis. Replace electrolytes. Continue mechanical ventilation. Recheck labs in a.m. Continue other medications as above.
[2020-06-08] MEDS ORDERED: D5 0.9% NS w/ 20 mEq KCl 1,000 ML IV SCH (21:55)
[2020-06-09] MEDS: Haloperidol Lactate 5 MG/ML VIAL IM SCH ×6 (00:43→20:26)
[2020-06-09 04:20] LABS: #Eosinphils 0.2 thou/uL (0.0-0.7); #Lymphocytes 0.6 thou/uL (1.20-3.40); #Monocytes 1.1 thou/uL (0.11-0.59); #Neutrophils 9.2 thou/uL (1.40-6.50); %Eosinophils 1.9 % (0.0-10.0); %Lymphocytes 5.6 % (21.0-51.0); %Monocytes 9.5 % (0.0-10.0); %Neutrophils 82.9 % (42.0-75.0); Hemoglobin 11.7 g/dL (14.0-18.0); Mean Corpuscular HGB CONC 31.3 g/dL (32.0-36.0); Mean Corpuscular Hemoglobin 28.5 pg (27.0-31.0); Platelet Count 122 thou/uL (130-400); RBC Distribution Width 18.2 % (11.5-14.5); Red Blood Cell (RBC) Count 4.12 mill/uL (4.70-6.10); White Blood Cell (WBC) Count 11.1 thou/uL (4.8-10.8)
[2020-06-09 04:34] LABS: INR-International Normal Ratio 1.6; Prothrombin Time 19.6 sec (12.0-14.7)
[2020-06-09 04:57] LABS: ALT (SGPT) 14 U/L (8-55); AST (SGOT) 42 U/L (5-34); Alkaline Phosphatase 135 U/L (40-110); Anion Gap 10 mmol/L (10-20); BUN (Urea Nitrogen) 14 mg/dL (8.4-25.7); Bilirubin, Total 3.5 mg/dL (0.2-1.2); Calc. Creatinine Clearance 113 mL/min (70-130); Calcium 7.2 mg/dL (7.8-10.44); Carbon Dioxide 26 mmol/L (23-31); Chloride 103 mmol/L (98-107); Globulin 3.2 g/dL (2.4-3.5); Glucose 105 mg/dL (80-115); Magnesium 1.6 mg/dL (1.6-2.6); Phosphorus 3.3 mg/dL (2.3-4.7); Potassium 3.8 mmol/L (3.5-5.1); Protein, Total 5.2 g/dL (5.8-8.1); Sodium 135 mmol/L (136-145)
[2020-06-09] MEDS: Furosemide 40 MG/4 ML VIAL SLOW IVP SCH ×2 (05:11→13:25)
[2020-06-09] MEDS ORDERED: Magnesium 2 GM/50 ML 2 GM in Premix Bag 1 BAG IVPB SCH (06:30)
[2020-06-09 07:20] LABS: Actual Bicarbonate (HCO3a) 26.3 mEq/L (22-28); Base Excess (BEa) 2.1 mEq/L (-2.0 to +3.0); CO2 Tension 39.5 mmHg (35.0-45.0); Calcium, Ionized (arterial) 1.09 mmol/L (1.12-1.30); Carboxyhemoglobin (COHb) 1.1 gm% (0.0-3.0); Hemoglobin (Hb) 12.8 g/dL (14.0-18.0); O2 Tension (PaO2), arterial 96.4 mmHg (> 80.0); Potassium - ABG Lab 3.72 mmol/L (3.70-5.30); pH, Arterial 7.44 (7.35-7.45)
[2020-06-09 07:23] LABS: ALV-art Gradient 139.425 mmHg (0-20); Puncture Site RRA
[2020-06-09] MEDS: Spironolactone 25 MG TAB PO SCH (07:47)
[2020-06-09] MEDS: cefTRIAXone\\ROCEPHIN 2 GM in Sodium Chloride 0.9% 100 ML IVPB SCH (08:02)
[2020-06-09] MEDS: Famotidine/PF 20 mg/2ml Vial SLOW IVP SCH ×2 (08:02→20:25)
[2020-06-09] MEDS: Ivabradine 5 MG TAB PO SCH ×2 (08:02→20:48)
[2020-06-09] MEDS: Digoxin 0.5 MG/2 ML AMP SLOW IVP SCH (08:03)
[2020-06-09] MEDS: Enoxaparin Sodium 40 MG/0.4 ML SYRINGE SC SCH (08:03)
--- NOTE | 2020-06-09 08:28 | RAD ---
Exam: Chest one view HISTORY:Respiratory distress. Ventilated patient. Comparison: 06/08/2020, 06/06/2020 FINDINGS: Lines and tubes: Stable right-sided subclavian vascular catheter, endotracheal tube and nasogastric t ube. The distal tip of the nasogastric tube is not included on this exam. Cardiac silhouette:Cardiomegaly. Aorta: Unremarkable Pulmonary vessels: Normal Costophrenic angles: Redemonstration of bilateral pleural effusions. The degree of pleural fluid is s imilar to the previous examination. LUNGS: Stable bilateral lower lobe and perihilar alveolar edema. Pneumothorax: None Osseous abnormalities: None IMPRESSION: Stable congestive heart failure.
[2020-06-09] MEDS: HumaLOG 300 UNITS/3 ML VIAL SC PRN (12:24)
[2020-06-09] MEDS: Lorazepam 2 MG/ML VIAL SLOW IVP PRN (14:26)
[2020-06-09] MEDS: Norepinephrine 8 MG/0.9% NS 250 ML IVPB SCH (16:30)
--- NOTE | 2020-06-09 16:35 | PRG ---
DATE OF SERVICE: 06/09/2020 SUBJECTIVE: Lloyd Chand remains mechanically ventilated and sedated. OBJECTIVE: VITAL SIGNS: Blood pressure 102/40, heart rate is in 80s, respiratory rates in the 20s. Intake and output negative 3266. LUNGS: Remarkable for coarse equal breath sounds. HEART: Regular rate and rhythm. ABDOMEN: Soft. EXTREMITIES: Without edema. DIAGNOSTIC STUDIES: Chest radiograph still shows finding suggestive of pulmonary edema. White count 11.1, hemoglobin 11.7, platelets 122. Electrolytes are normal. IMPRESSION: Respiratory failure secondary to congestive heart failure with severe dilated cardiomyopathy. We will continue supportive care. He is not weanable. Critical care time 30 min. Job ID: [id number] MTDD
[2020-06-09] MEDS ORDERED: EPINEPHrine 1 MG/10 ML Abboject SYRINGE ONE (19:14)
--- NOTE | 2020-06-09 19:50 | PDOC.HOSPP ---
- Subjective Encounter Date: 06/09/20 Encounter Time: 14:00 non-verbal Subjective: Patient seen and examined for respiratory failure due to cardiomyopathy. Remains on mechanical ventilation. Tolerating tube feeding. No other overnight events. - Objective Vital Signs & Weight: Vital Signs (12 hours) Temp Pulse Resp BP Pulse Ox 06/09/20 18:18 93 121/57 L 06/09/20 18:00 18 06/09/20 16:00 99.6 F 15 06/09/20 14:52 85 102/40 L 06/09/20 14:00 16 06/09/20 12:00 99.1 F 16 06/09/20 10:21 87 100/56 L 06/09/20 10:00 17 06/09/20 08:03 88 06/09/20 08:00 99.2 F 14 100 Weight Admit Weight 187 lb Weight 164 lb 7.437 oz Most Recent Monitor Data Heart Rate from ECG 99 NIBP 121/55 NIBP BP-Mean 77 Respiration from ECG 17 SpO2 100 I&O: 06/08/20 06/09/20 06/10/20 06:59 06:59 06:59 Intake Total 1399 1714 991 Output Total 4075 4980 3725 [facility] -[id number] [id number] Result Diagrams: 06/09/20 03:00 06/09/20 03:00 Additional Labs: Accuchecks 06/09/20 06/09/20 06/09/20 15:53 12:20 08:37 POC Glucose 95 153 H 141 H 06/09/20 06/09/20 06/08/20 03:32 00:35 20:12 POC Glucose 106 H 92 86 Abnormal Lab Results - Last 48 hrs 06/08/20 03:15: RBC 4.12 L, Hgb 12.1 L, Hct 38.0 L, MCHC 31.8 L, RDW 19.0 H, Plt Count 122 L, Band Neuts % (Manual) 12 H, Lymphocytes % (Manual) 6 L 06/08/20 03:15: Calcium 7.1 L, Total Bilirubin 2.9 H, AST 35 H, Alkaline Phosphatase 123 H, Serum Total Protein 5.1 L, Albumin 2.1 L, Albumin/Globulin Ratio 0.7 L 06/08/20 03:15: PT 19.1 H, APTT 41.0 H 06/08/20 07:40: ABG pH 7.47 H, ABG pCO2 33.7 L, ABG O2 Content 16.7 L, ABG Nima tocrit 36.0 L, ABG Hemoglobin 12.4 L, ABG Deoxyhemoglobin 3.7 H, A-a O2 Gradient 165.275 H, Sodium 134 L, Potassium 3.36 L, Chloride 107 H, Ionized Calcium 1.07 L 06/09/20 03:00: WBC 11.1 H, RBC 4.12 L, Hgb 11.7 L, Hct 37.5 L, MCHC 31.3 L, RDW 18.2 H, Plt Count 122 L, Neutrophils % 82.9 H, Lymphocytes % 5.6 L, Neutrophils # 9.2 H, Lymphocytes # 0.6 L, Monocytes # 1.1 H 06/09/20 03:00: Sodium 135 L, Calcium 7.2 L, Total Bilirubin 3.5 H, AST 42 H, Alkaline Phosphatase 135 H, Serum Total Protein 5.2 L, Albumin 2.0 L, Albumin/Globulin Ratio 0.6 L 06/09/20 03:00: PT 19.6 H, APTT 42.0 H 06/09/20 07:20: ABG pO2 96.4 H, ABG O2 Content 17.5 L, ABG Hematocrit 38.0 L, ABG Hemoglobin 12.8 L, ABG Methemoglobin 0.00 L, A-a O2 Gradient 139.425 H, Sodium 134 L, Ionized Calcium 1.09 L Microbiology - Entire Visit 06/06/20 19:20 Venous blood - Neck Blood Culture - Preliminary NO GROWTH AT 48 HOURS 06/06/20 19:18 Venous blood - Left Arm Blood Culture - Preliminary NO GROWTH AT 48 HOURS 06/06/20 20:36 Nasal swab Influenza Types A,B Direct EIA - Final EKG Reviewed by me: Yes (Sinus rhythm on telemetry) Hospitalist ROS - Review of Systems ROS unobtainable: due to mental status - Medication Medications: Active Medications Generic Name Dose Route Start Last Admin Trade Name Freq PRN Reason Stop Dose Admin Digoxin 0.25 mg 06/08/20 09:00 06/09/20 08:03 Digoxin 0.5 Mg/2 Ml Amp SLOW IVP 0.25 mg QAM MYRA Administration Enoxaparin Sodium 40 mg 06/07/20 09:00 06/09/20 08:03 Enoxaparin Sodium 40 Mg/0.4 Ml Syringe SC 40 mg 0900 MYRA Administration Famotidine 20 mg 06/07/20 09:00 06/09/20 08:02 Famotidine/Pf 20 Mg/2ml Vial SLOW IVP 20 mg Q12HR MYRA Administration Furosemide 40 mg 06/08/20 14:00 06/09/20 13:25 Furosemide 40 Mg/4 Ml Vial SLOW IVP 40 mg 0600,1400 MYRA Administration Haloperidol Lactate 5 mg 06/07/20 17:00 06/09/20 16:13 Haloperidol Lactate 5 Mg/Ml Vial IM 5 mg Q4HR MYRA Administration Fentanyl Citrate 2,000 mcg/ 100 mls @ 0 mls/hr 06/06/20 20:00 06/08/20 00:54 Sodium Chloride IV 07/06/20 20:00 100 mls INF MYRA Administration Protocol Per Protocol Norepinephrine Bitartrate 250 mls @ 0 mls/hr 06/06/20 23:15 06/09/20 16:30 Levophed IVPB 250 mls INF MYRA Administration Protocol Titrate Ceftriaxone Sodium 2 gm/ 100 mls @ 200 mls/hr 06/08/20 09:00 06/09/20 08:02 Sodium Chloride IVPB 100 mls DAILY MYRA Administration Insulin Human Lispro 0 units 06/07/20 01:20 06/09/20 12:24 Humalog 300 Units/3 Ml Vial SC 2 unit .MILD SLIDING SCALE PRN Administration Mild Correctional Scale Ivabradine 5 mg 06/08/20 10:05 06/09/20 08:02 Ivabradine 5 Mg Tab PO 5 mg BID MYRA Administration Lorazepam 2 mg 06/07/20 02:15 06/09/20 14:26 Lorazepam 2 Mg/Ml Vial SLOW IVP 07/07/20 02:15 2 mg Q1H PRN Administration Breakthrough agitation Sacubitril/Valsartan 0.5 tab 06/09/20 12:00 06/09/20 12:38 Sacubitril 24mg/Valsartan 26mg Tab PO 0.5 tab 1200 MYRA Administration Sodium Chloride 10 ml 06/07/20 09:00 06/09/20 08:04 Flush - Normal Saline 10 Ml Syringe IVF 10 ml Q12HR MYRA Administration Spironolactone 50 mg 06/08/20 10:06 06/09/20 07:47 Spironolactone 25 Mg Tab PO 50 mg QAM- MYRA Administration - Exam General Appearance: ill appearing General - other findings: On mechanical ventilation Heart: RRR, no rubs Respiratory: no wheezes, rhonchi Gastrointestinal: soft, non-distended, no guarding, no rigidity Extremities: no cyanosis Psychiatric - other findings: Neurology/psychcannot assess due to current mentation Hosp A/P - Plan DVT proph w/SCDs Acute hypoxic respiratory failure Acute on chronic systolic heart failure exacerbation Hypotension requiring pressors Coronary artery disease Severe mitral regurgitation Hypokalemia/hypomagnesemia Moderate to severe tricuspid regurgitation Hypertension COPD Diabetes mellitus type 2 Urine drug screen positive for methamphetamine last admission Plan: Continue diuretics. Continue tube feeding. Ventilation sedation protocol. Replace electrolytes. As needed pressors. DVT and GI prophylaxis. A.m. labs. Continue other medications as above.
[2020-06-10] MEDS: Haloperidol Lactate 5 MG/ML VIAL IM SCH ×6 (00:27→20:25)
[2020-06-10] MEDS: fentaNYL Citrate/PF 2,000 MCG in Sodium Chloride 0.9% 60 ML IV SCH (01:10)
[2020-06-10] MEDS ORDERED: Acetaminophen 650 MG/20.3 ML UDCUP PO PRN (02:13)
[2020-06-10] MEDS: Furosemide 40 MG/4 ML VIAL SLOW IVP SCH ×2 (05:12→13:20)
[2020-06-10 05:15] LABS: ALT (SGPT) 15 U/L (8-55); AST (SGOT) 38 U/L (5-34); Albumin 2.1 g/dL (3.4-4.8); Alkaline Phosphatase 147 U/L (40-110); Anion Gap 14 mmol/L (10-20); BUN (Urea Nitrogen) 15 mg/dL (8.4-25.7); Bilirubin, Total 4.4 mg/dL (0.2-1.2); Calc. Creatinine Clearance 111 mL/min (70-130); Calcium 7.5 mg/dL (7.8-10.44); Carbon Dioxide 26 mmol/L (23-31); Chloride 99 mmol/L (98-107); Globulin 3.6 g/dL (2.4-3.5); Glucose 135 mg/dL (80-115); Magnesium 1.7 mg/dL (1.6-2.6); Phosphorus 2.7 mg/dL (2.3-4.7); Potassium 3.8 mmol/L (3.5-5.1); Protein, Total 5.7 g/dL (5.8-8.1); Sodium 135 mmol/L (136-145)
[2020-06-10 05:18] LABS: Band 11 % (5-11); Eosinophils 2 % (0-10); Hemoglobin 12.9 g/dL (14.0-18.0); Lymphocytes 3 % (21-51); MDiff Complete? YES; Mean Corpuscular HGB CONC 32.1 g/dL (32.0-36.0); Mean Corpuscular Hemoglobin 29.7 pg (27.0-31.0); Mean Corpuscular Volume 92.4 fL (78.0-98.0); Mean Platelet Volume 9.7 fL (7.4-10.4); Monocytes 7 % (0-10); Neutrophil 77 % (42-75); Platelet Count 146 thou/uL (130-400); Platelet Morphology Comment Appears Adequate; RBC Distribution Width 18.6 % (11.5-14.5); Red Blood Cell (RBC) Count 4.34 mill/uL (4.70-6.10); White Blood Cell (WBC) Count 7.4 thou/uL (4.8-10.8)
[2020-06-10] MEDS ORDERED: Magnesium 2 GM/50 ML 2 GM in Premix Bag 1 BAG IVPB SCH (06:30)
[2020-06-10 08:08] LABS: Base Excess (BEa) 1.8 mEq/L (-2.0 to +3.0); CO2 Tension 44.6 mmHg (35.0-45.0); Carboxyhemoglobin (COHb) 1.6 gm% (0.0-3.0); Hemoglobin (Hb) 13.9 g/dL (14.0-18.0); O2 Tension (PaO2), arterial 95.4 mmHg (> 80.0); Potassium - ABG Lab 3.69 mmol/L (3.70-5.30)
[2020-06-10 08:21] LABS: Puncture Site RBA
[2020-06-10] MEDS: cefTRIAXone\\ROCEPHIN 2 GM in Sodium Chloride 0.9% 100 ML IVPB SCH (08:33)
[2020-06-10] MEDS: Spironolactone 25 MG TAB PO SCH (08:33)
[2020-06-10] MEDS: Enoxaparin Sodium 40 MG/0.4 ML SYRINGE SC SCH (08:34)
[2020-06-10] MEDS: Famotidine/PF 20 mg/2ml Vial SLOW IVP SCH ×2 (08:35→20:25)
[2020-06-10] MEDS: Digoxin 0.5 MG/2 ML AMP SLOW IVP SCH (08:39)
[2020-06-10] MEDS: Ivabradine 5 MG TAB PO SCH ×2 (08:39→20:30)
--- NOTE | 2020-06-10 08:40 | RAD ---
Chest AP view INDICATION: Daily CCU evaluation while on ventilator COMPARISON: June 09, 2020 FINDINGS: Lungs: Bilateral airspace disease persists Cardiac silhouette: Cardiomegaly is stable Pulmonary vasculature: Pulmonary vascular congestion persists Pleural spaces: Bilateral pleural effusions are similar appearing. No pneumothorax is evident. Upper abdomen: No abnormality seen. Osseous structures: No acute osseous abnormality. Additional findings: ET tube, gastric catheter and right subclavian central venous catheter are adam lar appearing. No pneumothorax is evident. IMPRESSION: Stable findings of CHF.
[2020-06-10] MEDS: Norepinephrine 8 MG/0.9% NS 250 ML IVPB SCH (11:05)
[2020-06-10] MEDS: HumaLOG 300 UNITS/3 ML VIAL SC PRN (12:21)
[2020-06-10] MEDS: Metoclopramide HCl 10 MG/2 ML VIAL IVP PRN ×2 (12:28→23:08)
--- NOTE | 2020-06-10 14:14 | PRG ---
DATE OF SERVICE: 06/10/2020 OBJECTIVE: Mr. Chand's hemodynamics remain stable. OBJECTIVE: VITAL SIGNS: Heart rates 80 to 90 range, blood pressure 101/53, respiratory rate 17, temperature 99.7. LUNGS: Remarkable for equal breath sounds. HEART: Regular rhythm. ABDOMEN: Soft. EXTREMITIES: Without asymmetry. LABORATORY STUDIES: White count 7.4, hemoglobin 12.9, platelets 146. Sodium 135, potassium 3.8, chloride 99, bicarb 26, BUN 15, creatinine 0.69, glucose 135. Bilirubin is 4.4, AST is 38, ALT is 15, alkaline phosphatase 147, albumin is 2.1. INR was 1.6 yesterday. IMPRESSION: 1. Severe cardiomyopathy with respiratory failure. Chest radiograph today was reviewed and shows persistent pulmonary edema. Intake and output, negative 2929. We will decrease ventilatory support today. PH is 7.40, CO2 of 44, PO2 of 95. Hopefully, we will continue to diurese. 1. Other problems included an elevated bilirubin of unclear etiology, anemia likely of chronic disease, and history of methamphetamine use at last admission. 2. Diabetes. 3. Hypertension. 4. History of chronic obstructive pulmonary disease. We will follow with the other physicians caring for him. He is not weanable today in my opinion. Critical care time 30 min. Job ID: [id number] MTDD
[2020-06-10] MEDS: Lorazepam 2 MG/ML VIAL SLOW IVP PRN ×2 (15:00→23:08)
[2020-06-10] MEDS: DOBUTamine 500 mg/250 ml 500 MG in Premix Bag 1 BAG IVPB SCH (15:07)
--- NOTE | 2020-06-10 18:11 | PDOC.HOSPP ---
- Subjective Encounter Date: 06/10/20 Encounter Time: 18:09 Subjective: Patient seen for follow-up regarding acute hypoxic respiratory failure. Patient is intubated, could not complete review of systems. - Objective Vital Signs & Weight: Vital Signs (12 hours) Temp Pulse Resp Pulse Ox 06/10/20 14:00 15 06/10/20 13:00 99.7 F H 06/10/20 12:09 80 06/10/20 12:00 98.2 F 14 100 06/10/20 10:00 14 06/10/20 08:39 92 06/10/20 08:00 98 F 14 100 Weight Admit Weight 187 lb Weight 162 lb 14.746 oz Most Recent Monitor Data Heart Rate from ECG 99 NIBP 119/61 NIBP BP-Mean 80 Respiration from ECG 23 SpO2 100 I&O: 06/09/20 06/10/20 06/11/20 06:59 06:59 06:59 Intake Total 1714 1811 110 Output Total 4936 4740 1390 [facility]3266 -2929 -1280 Result Diagrams: 06/10/20 04:00 06/10/20 04:00 Additional Labs: Accuchecks 06/10/20 06/10/20 06/10/20 11:42 04:04 00:29 POC Glucose 160 H 128 H 129 H 06/09/20 20:06 POC Glucose 122 H Labs and MAR reviewed by sd Hospitalist ROS - Review of Systems ROS unobtainable: due to endotracheal tube - Medication Medications: Active Medications Generic Name Dose Route Start Last Admin Trade Name Freq PRN Reason Stop Dose Admin Acetaminophen 650 mg 06/10/20 02:13 06/10/20 03:18 Acetaminophen 650 Mg/20.3 Ml Udcup PO 650 mg Q4H PRN Administration Fever/Mild Pain Digoxin 0.25 mg 06/08/20 09:00 06/10/20 08:39 Digoxin 0.5 Mg/2 Ml Amp SLOW IVP 0.25 mg QAM MYRA Administration Enoxaparin Sodium 40 mg 06/07/20 09:00 06/10/20 08:34 Enoxaparin Sodium 40 Mg/0.4 Ml Syringe SC 40 mg 0900 MYRA Administration Famotidine 20 mg 06/07/20 09:00 06/10/20 08:35 Famotidine/Pf 20 Mg/2ml Vial SLOW IVP 20 mg Q12HR MYRA Administration Furosemide 40 mg 06/08/20 14:00 06/10/20 13:20 Furosemide 40 Mg/4 Ml Vial SLOW IVP 40 mg 0600,1400 MYRA Administration Haloperidol Lactate 5 mg 06/07/20 17:00 06/10/20 12:28 Haloperidol Lactate 5 Mg/Ml Vial IM 5 mg Q4HR MYRA Administration Fentanyl Citrate 2,000 mcg/ 100 mls @ 0 mls/hr 06/06/20 20:00 06/10/20 01:10 Sodium Chloride IV 07/06/20 20:00 100 mls INF MYRA Administration Protocol Per Protocol Norepinephrine Bitartrate 250 mls @ 0 mls/hr 06/06/20 23:15 06/10/20 11:05 Levophed IVPB 250 mls INF MYRA Administration Protocol Titrate Ceftriaxone Sodium 2 gm/ 100 mls @ 200 mls/hr 06/08/20 09:00 06/10/20 08:33 Sodium Chloride IVPB 100 mls DAILY MYRA Administration Dobutamine HCl/Dextrose 500 mg 250 mls @ 0 mls/hr 06/10/20 14:45 06/10/20 15:07 / Device IVPB 250 mls INF MYRA Administration Protocol As Directed Insulin Human Lispro 0 units 06/07/20 01:20 06/10/20 12:21 Humalog 300 Units/3 Ml Vial SC 2 unit .MILD SLIDING SCALE PRN Administration Mild Correctional Scale Ivabradine 5 mg 06/08/20 10:05 06/10/20 08:39 Ivabradine 5 Mg Tab PO 5 mg BID MYRA Administration Lorazepam 2 mg 06/07/20 02:15 06/10/20 15:00 Lorazepam 2 Mg/Ml Vial SLOW IVP 07/07/20 02:15 2 mg Q1H PRN Administration Breakthrough agitation Metoclopramide HCl 10 mg 06/10/20 11:54 06/10/20 12:28 Metoclopramide Hcl 10 Mg/2 Ml Vial IVP 10 mg Q6H PRN Administration Nausea/Vomiting Sacubitril/Valsartan 0.5 tab 06/09/20 12:00 06/10/20 12:23 Sacubitril 24mg/Valsartan 26mg Tab PO 0.5 tab 1200 MYRA Administration Sodium Chloride 10 ml 06/07/20 09:00 06/10/20 08:35 Flush - Normal Saline 10 Ml Syringe IVF 10 ml Q12HR MYRA Administration Spironolactone 50 mg 06/08/20 10:06 06/10/20 08:33 Spironolactone 25 Mg Tab PO 50 mg QAM-WM MYRA Administration - Exam General - other findings: Intubated ENT: normocephalic atraumatic Neck: no thyromegaly Heart: RRR Respiratory: CTAB Gastrointestinal: soft Skin: no rashes Psychiatric - other findings: Unable to assess Hosp A/P - Plan Assessment: Acute hypoxic respiratory failure Acute on chronic systolic heart failure exacerbation NYHA class III Coronary artery disease Severe mitral regurgitation Hypertension COPD Diabetes mellitus type 2 Plan: Continue diuretics. Continue tube feeding. Ventilation sedation protocol. Replace electrolytes. DVT and GI prophylaxis.
[2020-06-11] MEDS: Haloperidol Lactate 5 MG/ML VIAL IM SCH ×3 (00:23→07:54)
[2020-06-11 04:19] LABS: Actual Bicarbonate (HCO3a) 29.6 mEq/L (22-28); Base Excess (BEa) 5.1 mEq/L (-2.0 to +3.0); Carboxyhemoglobin (COHb) 1.1 gm% (0.0-3.0); Hemoglobin (Hb) 13.7 g/dL (14.0-18.0); O2 Tension (PaO2), arterial 114.2 mmHg (> 80.0); Potassium - ABG Lab 3.66 mmol/L (3.70-5.30); pH, Arterial 7.46 (7.35-7.45)
[2020-06-11 04:22] LABS: Puncture Site LRA
[2020-06-11] MEDS: Furosemide 40 MG/4 ML VIAL SLOW IVP SCH ×2 (05:17→12:33)
[2020-06-11] MEDS: Norepinephrine 8 MG/0.9% NS 250 ML IVPB SCH ×2 (05:18→22:52)
[2020-06-11] MEDS: HumaLOG 300 UNITS/3 ML VIAL SC PRN ×3 (05:50→18:48)
[2020-06-11] MEDS: Spironolactone 25 MG TAB PO SCH (07:53)
[2020-06-11] MEDS: Famotidine/PF 20 mg/2ml Vial SLOW IVP SCH ×2 (07:53→20:16)
[2020-06-11] MEDS: cefTRIAXone\\ROCEPHIN 2 GM in Sodium Chloride 0.9% 100 ML IVPB SCH (07:53)
[2020-06-11] MEDS: Enoxaparin Sodium 40 MG/0.4 ML SYRINGE SC SCH (07:54)
[2020-06-11] MEDS: Digoxin 0.5 MG/2 ML AMP SLOW IVP SCH (07:57)
[2020-06-11 07:59] LABS: #Eosinphils 0.3 thou/uL (0.0-0.7); #Lymphocytes 0.7 thou/uL (1.20-3.40); #Monocytes 1.3 thou/uL (0.11-0.59); #Neutrophils 8.9 thou/uL (1.40-6.50); %Basophils 0.4 % (0.0-1.0); %Eosinophils 2.9 % (0.0-10.0); %Monocytes 11.6 % (0.0-10.0); %Neutrophils 79.2 % (42.0-75.0); Hemoglobin 13.3 g/dL (14.0-18.0); Mean Corpuscular HGB CONC 31.1 g/dL (32.0-36.0); Mean Corpuscular Volume 90.2 fL (78.0-98.0); Mean Platelet Volume 9.4 fL (7.4-10.4); Platelet Count 192 thou/uL (130-400); RBC Distribution Width 18.6 % (11.5-14.5); Red Blood Cell (RBC) Count 4.73 mill/uL (4.70-6.10); White Blood Cell (WBC) Count 11.3 thou/uL (4.8-10.8)
[2020-06-11 08:01] LABS: Actual Bicarbonate (HCO3a) 32.3 mEq/L (22-28); CO2 Tension 43.2 mmHg (35.0-45.0); Carboxyhemoglobin (COHb) 1.2 gm% (0.0-3.0); Hemoglobin (Hb) 13.7 g/dL (14.0-18.0); O2 Tension (PaO2), arterial 86.8 mmHg (> 80.0); Potassium - ABG Lab 3.62 mmol/L (3.70-5.30); pH, Arterial 7.49 (7.35-7.45)
[2020-06-11 08:02] LABS: Puncture Site RBA
[2020-06-11 08:10] LABS: Anion Gap 14 mmol/L (10-20); BUN (Urea Nitrogen) 14 mg/dL (8.4-25.7); Calc. Creatinine Clearance 119 mL/min (70-130); Calcium 7.4 mg/dL (7.8-10.44); Carbon Dioxide 29 mmol/L (23-31); Chloride 97 mmol/L (98-107); Glucose 145 mg/dL (80-115); Magnesium 1.7 mg/dL (1.6-2.6); Potassium 3.7 mmol/L (3.5-5.1); Sodium 136 mmol/L (136-145)
[2020-06-11] MEDS: Ivabradine 5 MG TAB PO SCH ×2 (08:25→20:17)
--- NOTE | 2020-06-11 08:44 | RAD ---
Chest AP view INDICATION: Daily ccu examination while on a ventilator COMPARISON: Prior exam dated June 10, 2020 FINDINGS: Lungs: There is improvement in the airspace disease of the right lung. Diffuse airspace opacity in t he left lung persists Cardiac silhouette: Mild cardiomegaly is stable Pulmonary vasculature: Pulmonary vascular congestion and central edema pattern appears slightly impr reena. Pleural spaces: No pneumothorax. Slightly less prominent bilateral pleural effusions. Upper abdomen: No abnormality seen. Osseous structures: No acute osseous abnormality. Additional findings: ET tube, gastric catheter and right subclavian central venous catheter are stab le. No pneumothorax. IMPRESSION: Findings most consistent with improving CHF. Continued follow-up is recommended.
[2020-06-11] MEDS ORDERED: Magnesium 2 GM/50 ML 2 GM in Premix Bag 1 BAG IVPB SCH ×3 (09:15→22:15)
[2020-06-11] MEDS ORDERED: Aspirin 81 mg Enteric Coated Tablet PO SCH (11:15)
[2020-06-11] MEDS: DOBUTamine 500 mg/250 ml 500 MG in Premix Bag 1 BAG IVPB SCH (15:45)
--- NOTE | 2020-06-11 17:20 | PDOC.HOSPP ---
- Subjective Encounter Date: 06/11/20 Encounter Time: 13:00 Subjective: Patient seen for follow-up for hypoxic respiratory failure. Is intubated, could not complete review of systems. - Objective Vital Signs & Weight: Vital Signs (12 hours) Temp Pulse Resp Pulse Ox 06/11/20 16:00 17 06/11/20 15:21 80 06/11/20 14:00 16 06/11/20 12:00 14 06/11/20 11:00 97.9 F 06/11/20 10:00 14 06/11/20 09:58 100 06/11/20 08:00 14 100 06/11/20 07:57 80 06/11/20 07:00 98.1 F 06/11/20 06:00 16 Weight Admit Weight 187 lb Weight 147 lb 11.355 oz Most Recent Monitor Data Heart Rate from ECG 79 NIBP 104/59 NIBP BP-Mean 74 Respiration from ECG 20 SpO2 100 I&O: 06/10/20 06/11/20 06/12/20 06:59 06:59 06:59 Intake Total 1811 1196.3 30 Output Total 4740 3100 1605 [facility]2929 -1903.7 -1575 Result Diagrams: 06/11/20 07:26 06/11/20 07:26 Additional Labs: Accuchecks 06/11/20 06/11/20 06/11/20 16:27 13:50 05:47 POC Glucose 165 H 144 H 170 H 06/11/20 00:15 POC Glucose 121 H I reviewed patient's labs and MAR Hospitalist ROS - Review of Systems ROS unobtainable: due to endotracheal tube - Medication Medications: Active Medications Generic Name Dose Route Start Last Admin Trade Name Freq PRN Reason Stop Dose Admin Acetaminophen 650 mg 06/10/20 02:13 06/10/20 03:18 Acetaminophen 650 Mg/20.3 Ml Udcup PO 650 mg Q4H PRN Administration Fever/Mild Pain Enoxaparin Sodium 40 mg 06/07/20 09:00 06/11/20 07:54 Enoxaparin Sodium 40 Mg/0.4 Ml Syringe SC 40 mg 0900 MYRA Administration Famotidine 20 mg 06/07/20 09:00 06/11/20 07:53 Famotidine/Pf 20 Mg/2ml Vial SLOW IVP 20 mg Q12HR MYRA Administration Furosemide 40 mg 06/08/20 14:00 06/11/20 12:33 Furosemide 40 Mg/4 Ml Vial SLOW IVP 40 mg 0600,1400 MYRA Administration Fentanyl Citrate 2,000 mcg/ 100 mls @ 0 mls/hr 06/06/20 20:00 06/10/20 01:10 Sodium Chloride IV 07/06/20 20:00 100 mls INF MYRA Administration Protocol Per Protocol Norepinephrine Bitartrate 250 mls @ 0 mls/hr 06/06/20 23:15 06/11/20 05:18 Levophed IVPB 250 mls INF MYRA Administration Protocol Titrate Ceftriaxone Sodium 2 gm/ 100 mls @ 200 mls/hr 06/08/20 09:00 06/11/20 07:53 Sodium Chloride IVPB 100 mls DAILY MYRA Administration Dobutamine HCl/Dextrose 500 mg 250 mls @ 0 mls/hr 06/10/20 14:45 06/11/20 15:45 / Device IVPB 250 mls INF MYRA Administration Protocol As Directed Insulin Human Lispro 0 units 06/07/20 01:20 06/11/20 16:44 Humalog 300 Units/3 Ml Vial SC 2 unit .MILD SLIDING SCALE PRN Administration Mild Correctional Scale Ivabradine 5 mg 06/08/20 10:05 06/11/20 08:25 Ivabradine 5 Mg Tab PO 5 mg BID MYRA Administration Lorazepam 2 mg 06/07/20 02:15 06/10/20 23:08 Lorazepam 2 Mg/Ml Vial SLOW IVP 07/07/20 02:15 2 mg Q1H PRN Administration Breakthrough agitation Metoclopramide HCl 10 mg 06/10/20 11:54 06/10/20 23:08 Metoclopramide Hcl 10 Mg/2 Ml Vial IVP 10 mg Q6H PRN Administration Nausea/Vomiting Sacubitril/Valsartan 0.5 tab 06/09/20 12:00 06/11/20 13:58 Sacubitril 24mg/Valsartan 26mg Tab PO 0.5 tab 1200 MYRA Administration Sodium Chloride 10 ml 06/07/20 09:00 06/11/20 07:54 Flush - Normal Saline 10 Ml Syringe IVF 10 ml Q12HR MYRA Administration Spironolactone 50 mg 06/08/20 10:06 06/11/20 07:53 Spironolactone 25 Mg Tab PO 50 mg QAM-[facility] Administration - Exam General - other findings: Intubated ENT - other findings: Endotracheal tube Neck: no thyromegaly Heart: RRR Respiratory: rales Gastrointestinal: normal bowel sounds Skin: no rashes Psychiatric - other findings: Unable to assess Hosp A/P - Plan Assessment: Acute hypoxic respiratory failure Acute on chronic systolic heart failure exacerbation NYHA class III Coronary artery disease Severe mitral regurgitation Hypertension COPD Diabetes mellitus type 2 Plan: Patient continues to be intubated and mechanically ventilated. Continue dobutamine drip. Continue diuretics. Continue tube feeding. Ventilation sedation protocol. Replace electrolytes. DVT and GI prophylaxis.
--- NOTE | 2020-06-11 18:03 | PRG ---
DATE OF SERVICE: 06/11/2020 SUBJECTIVE: Lloyd Chand had torsades last night. He was given magnesium this morning. He remains mechanically ventilated. OBJECTIVE: VITAL SIGNS: He is afebrile. Heart rate is in 70s, blood pressure 104/59. LUNGS: Remarkable for coarse equal breath sounds. HEART: Regular rhythm. ABDOMEN: Soft. EXTREMITIES: Without asymmetry. Intake and output are negative 1902. LABORATORY DATA: Chest radiograph still shows there is an increase in interstitial markings. White count 11.3, hemoglobin 13.3, platelets 192,000. Sodium 136, potassium 3.7, chloride 97, bicarb 29, BUN 14, creatinine 0.5. PH 7.49, CO2 of 43, PO2 of 86. IMPRESSION: 1. Respiratory failure associated with cardiomyopathy. 2. Torsades. He has had no recurrent ventricular tachycardia today, but he has had intermittent sinus pauses and a significant amount of ventricular ectopy. Haldol has been discontinued. He will remain mechanically ventilated. Cardiology is following this. Critical care time 30 min. Job ID: [id number] MTDD
[2020-06-11] MEDS: Metoclopramide HCl 10 MG/2 ML VIAL IVP PRN (20:16)
[2020-06-11] MEDS: Atorvastatin Calcium 40 MG TAB PO SCH (20:16)
[2020-06-12] MEDS: Metoclopramide HCl 10 MG/2 ML VIAL IVP PRN ×2 (03:13→14:37)
[2020-06-12] MEDS: fentaNYL Citrate/PF 2,000 MCG in Sodium Chloride 0.9% 60 ML IV SCH (03:22)
[2020-06-12] MEDS: Furosemide 40 MG/4 ML VIAL SLOW IVP SCH ×2 (05:36→14:35)
[2020-06-12 08:05] LABS: Actual Bicarbonate (HCO3a) 31.4 mEq/L (22-28); Base Excess (BEa) 6.7 mEq/L (-2.0 to +3.0); CO2 Tension 44.8 mmHg (35.0-45.0); Calcium, Ionized (arterial) 1.11 mmol/L (1.12-1.30); Carboxyhemoglobin (COHb) 1.6 gm% (0.0-3.0); Hemoglobin (Hb) 13.3 g/dL (14.0-18.0); O2 Tension (PaO2), arterial 102.1 mmHg (> 80.0); Potassium - ABG Lab 3.58 mmol/L (3.70-5.30); pH, Arterial 7.46 (7.35-7.45)
--- NOTE | 2020-06-12 08:29 | RAD ---
PORTABLE CHEST: HISTORY: CCU followup. Ventilator followup. COMPARISON: 06/11/2020. FINDINGS/IMPRESSION: ET tube, NG tube, and central lines are unchanged. Diffuse bilateral hazy alveolar infiltrates. [place] ateral effusions. No significant change from yesterday. POS: AGW
[2020-06-12] MEDS ORDERED: Furosemide 40 MG/4 ML VIAL SLOW IVP SCH (08:45)
[2020-06-12] MEDS: Famotidine/PF 20 mg/2ml Vial SLOW IVP SCH ×2 (09:18→21:01)
[2020-06-12] MEDS: Aspirin 81 mg Enteric Coated Tablet PO SCH (09:18)
[2020-06-12] MEDS: cefTRIAXone\\ROCEPHIN 2 GM in Sodium Chloride 0.9% 100 ML IVPB SCH (09:18)
[2020-06-12] MEDS: Enoxaparin Sodium 40 MG/0.4 ML SYRINGE SC SCH (09:18)
[2020-06-12] MEDS: Spironolactone 25 MG TAB PO SCH (09:20)
[2020-06-12] MEDS: Ivabradine 5 MG TAB PO SCH ×2 (09:21→21:02)
[2020-06-12] MEDS: DOBUTamine 500 mg/250 ml 500 MG in Premix Bag 1 BAG IVPB SCH ×2 (11:55→22:58)
[2020-06-12 12:05] LABS: Puncture Site LRA
--- NOTE | 2020-06-12 12:29 | PRG ---
DATE OF SERVICE: 06/12/2020 SUBJECTIVE: Lloyd Chand had torsades again last night. OBJECTIVE: VITAL SIGNS: Heart rate is in 80s, blood pressure 92/52, respiratory rates in the teens. LUNGS: Remarkable for coarse equal breath sounds. HEART: Regular rhythm. ABDOMEN: Soft. EXTREMITIES: Without edema. LABORATORY DATA: White count 11.3, hemoglobin 13.3, platelets 192 yesterday. There is no lab today other than glucoses. IMPRESSION: Respiratory failure associated with cardiomyopathy, now with torsades 2 nights in a row. He is not weanable until his rhythm disturbance are under better control. In my opinion, chest radiographs unchanged. We will continue to follow. Critical care time 30 min. Job ID: [id number] MTDD
[2020-06-12] MEDS: Lorazepam 2 MG/ML VIAL SLOW IVP PRN ×2 (12:44→21:07)
--- NOTE | 2020-06-12 17:51 | PDOC.HOSPP ---
- Subjective Encounter Date: 06/12/20 Encounter Time: 13:00 Subjective: Patient seen for follow-up of hypoxic respiratory failure. Unable to obtain review of systems secondary to intubated status. - Objective Vital Signs & Weight: Vital Signs (12 hours) Temp Pulse Resp BP Pulse Ox 06/12/20 16:00 98.5 F 14 06/12/20 14:40 87 94/54 L 06/12/20 14:00 14 06/12/20 12:00 98.2 F 17 06/12/20 11:11 87 92/52 L 06/12/20 10:00 17 06/12/20 08:00 97.8 F 06/12/20 07:43 96 111/59 L 06/12/20 07:24 15 100 06/12/20 06:00 14 Weight Admit Weight 187 lb Weight 154 lb 5.177 oz Most Recent Monitor Data Heart Rate from ECG 95 NIBP 116/56 NIBP BP-Mean 76 Respiration from ECG 21 SpO2 100 I&O: 06/11/20 06/12/20 06/13/20 06:59 06:59 06:59 Intake Total 1196.3 2003.2 1367.4 Output Total 3100 2190 2050 Balance -1903.7 -186.8 -682.6 Result Diagrams: 06/11/20 07:26 06/11/20 07:26 Additional Labs: Accuchecks 06/12/20 06/12/20 06/11/20 12:22 05:40 22:22 POC Glucose 163 H 131 H 129 H 06/11/20 06/10/20 17:55 18:46 POC Glucose 153 H 135 H I reviewed patient's labs and MAR Hospitalist ROS - Review of Systems ROS unobtainable: due to endotracheal tube - Medication Medications: Active Medications Generic Name Dose Route Start Last Admin Trade Name Freq PRN Reason Stop Dose Admin Acetaminophen 650 mg 06/10/20 02:13 06/10/20 03:18 Acetaminophen 650 Mg/20.3 Ml Udcup PO 650 mg Q4H PRN Administration Fever/Mild Pain Aspirin 81 mg 06/12/20 09:00 06/12/20 09:18 Aspirin 81 Mg Enteric Coated Tablet PO 81 mg DAILY MYRA Administration Atorvastatin Calcium 40 mg 06/11/20 21:00 06/11/20 20:16 Atorvastatin Calcium 40 Mg Tab PO 40 mg HS MYRA Administration Enoxaparin Sodium 40 mg 06/07/20 09:00 06/12/20 09:18 Enoxaparin Sodium 40 Mg/0.4 Ml Syringe SC 40 mg 0900 MYRA Administration Famotidine 20 mg 06/07/20 09:00 06/12/20 09:18 Famotidine/Pf 20 Mg/2ml Vial SLOW IVP 20 mg Q12HR MYRA Administration Furosemide 80 mg 06/12/20 14:00 06/12/20 14:35 Furosemide 40 Mg/4 Ml Vial SLOW IVP 80 mg 0600,1400 MYRA Administration Fentanyl Citrate 2,000 mcg/ 100 mls @ 0 mls/hr 06/06/20 20:00 06/12/20 03:22 Sodium Chloride IV 07/06/20 20:00 100 mls INF MYRA Administration Protocol Per Protocol Norepinephrine Bitartrate 250 mls @ 0 mls/hr 06/06/20 23:15 06/11/20 22:52 Levophed IVPB 250 mls INF MYRA Administration Protocol Titrate Ceftriaxone Sodium 2 gm/ 100 mls @ 200 mls/hr 06/08/20 09:00 06/12/20 09:18 Sodium Chloride IVPB 100 mls DAILY MYRA Administration Dobutamine HCl/Dextrose 500 mg 250 mls @ 0 mls/hr 06/10/20 14:45 06/12/20 11:55 / Device IVPB 250 mls INF MYRA Administration Protocol As Directed Insulin Human Lispro 0 units 06/07/20 01:20 06/11/20 18:48 Humalog 300 Units/3 Ml Vial SC 2 unit .MILD SLIDING SCALE PRN Administration Mild Correctional Scale Ivabradine 5 mg 06/08/20 10:05 06/12/20 09:21 Ivabradine 5 Mg Tab PO 5 mg BID MYRA Administration Lorazepam 2 mg 06/07/20 02:15 06/12/20 12:44 Lorazepam 2 Mg/Ml Vial SLOW IVP 07/07/20 02:15 2 mg Q1H PRN Administration Breakthrough agitation Metoclopramide HCl 10 mg 06/10/20 11:54 06/12/20 14:37 Metoclopramide Hcl 10 Mg/2 Ml Vial IVP 10 mg Q6H PRN Administration Nausea/Vomiting Sacubitril/Valsartan 0.5 tab 06/09/20 12:00 06/12/20 11:56 Sacubitril 24mg/Valsartan 26mg Tab PO 0.5 tab 1200 MYRA Administration Sodium Chloride 10 ml 06/07/20 09:00 06/12/20 09:21 Flush - Normal Saline 10 Ml Syringe IVF 10 ml Q12HR MYRA Administration Spironolactone 50 mg 06/08/20 10:06 06/12/20 09:20 Spironolactone 25 Mg Tab PO 50 mg QAM-WM MYRA Administration - Exam General - other findings: Intubated and mechanically ventilated Neck: no lymphadenopathy Heart: RRR Respiratory: rhonchi Gastrointestinal: soft Skin: no rashes Psychiatric - other findings: Able to assess Hosp A/P - Plan Assessment: Acute hypoxic respiratory failure Acute on chronic systolic heart failure exacerbation NYHA class III Coronary artery disease Severe mitral regurgitation Hypertension COPD Diabetes mellitus type 2 Plan: Patient is intubated and mechanically ventilated. Continue dobutamine and Levophed drip. Continue tube feeding. Ventilation sedation protocol. Replace electrolytes. DVT and GI prophylaxis.
[2020-06-12] MEDS: Atorvastatin Calcium 40 MG TAB PO SCH (21:02)
[2020-06-13] MEDS: Norepinephrine 8 MG/0.9% NS 250 ML IVPB SCH ×2 (04:43→16:18)
[2020-06-13 05:07] LABS: Band 4 % (5-11); Eosinophils 1 % (0-10); Hemoglobin 12.3 g/dL (14.0-18.0); Hypochromia SLIGHT = 6-15 cells (100X) (0-5/hpf); Lymphocytes 2 % (21-51); MDiff Complete? YES; Mean Corpuscular HGB CONC 32.3 g/dL (32.0-36.0); Mean Corpuscular Hemoglobin 29.1 pg (27.0-31.0); Mean Corpuscular Volume 90.1 fL (78.0-98.0); Mean Platelet Volume 9.3 fL (7.4-10.4); Monocytes 22 % (0-10); Neutrophil 71 % (42-75); Platelet Count 232 thou/uL (130-400); Platelet Morphology Comment Appears Adequate; RBC Distribution Width 18.9 % (11.5-14.5); Red Blood Cell (RBC) Count 4.24 mill/uL (4.70-6.10); White Blood Cell (WBC) Count 8.4 thou/uL (4.8-10.8)
[2020-06-13 05:13] LABS: Anion Gap 13 mmol/L (10-20); BUN (Urea Nitrogen) 16 mg/dL (8.4-25.7); Calc. Creatinine Clearance 123 mL/min (70-130); Calcium 7.6 mg/dL (7.8-10.44); Carbon Dioxide 32 mmol/L (23-31); Chloride 94 mmol/L (98-107); Glucose 107 mg/dL (80-115); Potassium 3.7 mmol/L (3.5-5.1); Sodium 135 mmol/L (136-145)
[2020-06-13] MEDS: Furosemide 40 MG/4 ML VIAL SLOW IVP SCH ×2 (05:25→14:53)
[2020-06-13 07:42] LABS: Actual Bicarbonate (HCO3a) 34.4 mEq/L (22-28); Base Excess (BEa) 10.2 mEq/L (-2.0 to +3.0); CO2 Tension 44.1 mmHg (35.0-45.0); Calcium, Ionized (arterial) 1.08 mmol/L (1.12-1.30); Hemoglobin (Hb) 13.2 g/dL (14.0-18.0); O2 Tension (PaO2), arterial 109.3 mmHg (> 80.0); Potassium - ABG Lab 3.46 mmol/L (3.70-5.30); pH, Arterial 7.51 (7.35-7.45)
[2020-06-13 07:44] LABS: ALV-art Gradient 120.775 mmHg (0-20); Puncture Site LRA
--- NOTE | 2020-06-13 07:59 | RAD ---
XR Chest 1 View Portable History: Ventilated patient Comparison: Radiograph prior day Findings: Large layering pleural effusions. Heart size is enlarged. Endotracheal tube tip above the c cammy 1.5 cm. Enteric tube tip gastric body. Dilated loops of bowel in the abdomen. Mild pulmonary edema. No pneumothorax. Right-sided central venous catheter tip projects over the right atrium. Impression: Similar examination of the chest without improved lung aeration.
[2020-06-13] MEDS: fentaNYL Citrate/PF 2,000 MCG in Sodium Chloride 0.9% 60 ML IV SCH (08:33)
[2020-06-13] MEDS: Spironolactone 25 MG TAB PO SCH (08:37)
[2020-06-13] MEDS: Aspirin 81 mg Enteric Coated Tablet PO SCH (08:37)
[2020-06-13] MEDS: cefTRIAXone\\ROCEPHIN 2 GM in Sodium Chloride 0.9% 100 ML IVPB SCH (08:37)
[2020-06-13] MEDS: Famotidine/PF 20 mg/2ml Vial SLOW IVP SCH ×2 (08:37→20:16)
[2020-06-13] MEDS: Ivabradine 5 MG TAB PO SCH ×2 (08:38→20:25)
[2020-06-13] MEDS: Enoxaparin Sodium 40 MG/0.4 ML SYRINGE SC SCH (08:38)
[2020-06-13] MEDS ORDERED: Magnesium 2 GM/50 ML 2 GM in Premix Bag 1 BAG IVPB SCH ×2 (08:45→12:45)
[2020-06-13] MEDS: DOBUTamine 500 mg/250 ml 500 MG in Premix Bag 1 BAG IVPB SCH ×2 (09:00→21:10)
[2020-06-13] MEDS: Lorazepam 2 MG/ML VIAL SLOW IVP PRN ×2 (10:07→18:12)
[2020-06-13] MEDS: Metoclopramide HCl 10 MG/2 ML VIAL IVP PRN ×2 (12:37→20:28)
--- NOTE | 2020-06-13 17:27 | PRG ---
DATE OF SERVICE: 06/13/2020 SUBJECTIVE: Lloyd Chand continues to have intermittent episodes of torsades. OBJECTIVE: VITAL SIGNS: Respiratory rate is in the teens, FiO2 is at 40, heart rate is in 80s, blood pressure is 111/65. LUNGS: Clear anteriorly. HEART: Regular rate and rhythm. ABDOMEN: Soft. EXTREMITIES: Without asymmetry. DIAGNOSTIC DATA: Bilateral pleural effusions are seen on chest radiograph. No significant change. Intake and output; -2041. White count 8.4, hemoglobin 12.3, and platelets 232. Sodium 135, potassium 3.7, chloride 94, bicarb 32, BUN 16, and creatinine 0.59. IMPRESSION: Respiratory failure with severe cardiomyopathy and recurrent torsades. PLAN: Continue supportive care. Job ID: [id number]
--- NOTE | 2020-06-13 18:42 | PDOC.HOSPP ---
- Subjective Encounter Date: 06/13/20 Encounter Time: 13:30 Subjective: Patient seen in follow-up for acute hypoxic respiratory failure. He continues to be intubated, could not complete review of systems. - Objective Vital Signs & Weight: Vital Signs (12 hours) Temp Pulse Resp BP Pulse Ox 06/13/20 18:00 13 06/13/20 16:00 98.0 F 13 06/13/20 14:39 93 105/59 L 06/13/20 14:00 15 06/13/20 12:00 98.1 F 12 06/13/20 10:20 85 88/44 L 06/13/20 10:00 14 06/13/20 08:00 98.0 F 12 100 06/13/20 07:31 81 111/58 L Weight Admit Weight 187 lb Weight 155 lb 3.287 oz Most Recent Monitor Data Heart Rate from ECG 93 NIBP 105/62 NIBP BP-Mean 76 Respiration from ECG 20 SpO2 100 I&O: 06/12/20 06/13/20 06/14/20 06:59 06:59 06:59 Intake Total 2003.2 1992.4 1256.5 Output Total 2190 4035 2140 Balance -186.8 -2042.6 -883.5 Result Diagrams: 06/13/20 03:50 06/13/20 03:50 Additional Labs: Accuchecks 06/13/20 06/13/20 06/12/20 17:38 12:27 21:20 POC Glucose 133 H 124 H 128 H Labs and MAR reviewed by nm Hospitalist ROS - Review of Systems ROS unobtainable: due to endotracheal tube - Medication Medications: Active Medications Generic Name Dose Route Start Last Admin Trade Name Freq PRN Reason Stop Dose Admin Acetaminophen 650 mg 06/10/20 02:13 06/10/20 03:18 Acetaminophen 650 Mg/20.3 Ml Udcup PO 650 mg Q4H PRN Administration Fever/Mild Pain Aspirin 81 mg 06/12/20 09:00 06/13/20 08:37 Aspirin 81 Mg Enteric Coated Tablet PO 81 mg DAILY MYRA Administration Atorvastatin Calcium 40 mg 06/11/20 21:00 06/12/20 21:02 Atorvastatin Calcium 40 Mg Tab PO 40 mg HS MYRA Administration Enoxaparin Sodium 40 mg 06/07/20 09:00 06/13/20 08:38 Enoxaparin Sodium 40 Mg/0.4 Ml Syringe SC 40 mg 0900 MYRA Administration Famotidine 20 mg 06/07/20 09:00 06/13/20 08:37 Famotidine/Pf 20 Mg/2ml Vial SLOW IVP 20 mg Q12HR MYRA Administration Furosemide 80 mg 06/12/20 14:00 06/13/20 14:53 Furosemide 40 Mg/4 Ml Vial SLOW IVP 80 mg 0600,1400 MYRA Administration Fentanyl Citrate 2,000 mcg/ 100 mls @ 0 mls/hr 06/06/20 20:00 06/13/20 08:33 Sodium Chloride IV 07/06/20 20:00 100 mls INF MYRA Administration Protocol Per Protocol Norepinephrine Bitartrate 250 mls @ 0 mls/hr 06/06/20 23:15 06/13/20 16:18 Levophed IVPB 250 mls INF MYRA Administration Protocol Titrate Ceftriaxone Sodium 2 gm/ 100 mls @ 200 mls/hr 06/08/20 09:00 06/13/20 08:37 Sodium Chloride IVPB 100 mls DAILY MYRA Administration Dobutamine HCl/Dextrose 500 mg 250 mls @ 0 mls/hr 06/10/20 14:45 06/13/20 09:00 / Device IVPB 250 mls INF MYRA Administration Protocol As Directed Insulin Human Lispro 0 units 06/07/20 01:20 06/11/20 18:48 Humalog 300 Units/3 Ml Vial SC 2 unit .MILD SLIDING SCALE PRN Administration Mild Correctional Scale Ivabradine 5 mg 06/08/20 10:05 06/13/20 08:38 Ivabradine 5 Mg Tab PO 5 mg BID MYRA Administration Lorazepam 2 mg 06/07/20 02:15 06/13/20 18:12 Lorazepam 2 Mg/Ml Vial SLOW IVP 07/07/20 02:15 2 mg Q1H PRN Administration Breakthrough agitation Metoclopramide HCl 10 mg 06/10/20 11:54 06/13/20 12:37 Metoclopramide Hcl 10 Mg/2 Ml Vial IVP 10 mg Q6H PRN Administration Nausea/Vomiting Sacubitril/Valsartan 0.5 tab 06/09/20 12:00 06/13/20 12:34 Sacubitril 24mg/Valsartan 26mg Tab PO 0.5 tab 1200 MYRA Administration Sodium Chloride 10 ml 06/07/20 09:00 06/13/20 08:38 Flush - Normal Saline 10 Ml Syringe IVF 10 ml Q12HR MYRA Administration Spironolactone 50 mg 06/08/20 10:06 06/13/20 08:37 Spironolactone 25 Mg Tab PO 50 mg QAM-WM MYRA Administration - Exam General - other findings: Intubated Eye: anicteric sclera ENT: normocephalic atraumatic Neck: no thyromegaly, no lymphadenopathy Heart: RRR Respiratory: rales Gastrointestinal: soft Skin: no rashes Psychiatric - other findings: Unable to assess Hosp A/P - Plan Patient was admitted to the hospital on June 07, 2020 for severe hypoxia and respiratory distress. He was initially treated with BiPAP after arrival at this facility but he could not tolerate it and he was subsequently intubated. He was seen by pulmonary and cardiology services. He is currently on furosemide 80 mg IV twice daily, ivabradine 5 mg twice daily, Entresto 12/13 mg daily and spironolactone 50 mg daily. Is also on Levophed and dobutamine drips. Assessment: Acute hypoxic respiratory failure Severe cardiomyopathy Episodes of torsades Acute on chronic systolic congestive heart failure NYHA class III Coronary artery disease Severe mitral regurgitation Hypertension COPD Diabetes mellitus type 2 Plan: Patient continues to be intubated and mechanically ventilated. Patient is on dobutamine and Levophed drip. Patient is on tube feeding. Ventilation sedation protocol. Electrolyte replacement per protocol. DVT and GI prophylaxis. Patient is on furosemide 80 mg IV twice daily. Is also on spironolactone.
[2020-06-13] MEDS: Atorvastatin Calcium 40 MG TAB PO SCH (20:16)
[2020-06-14 03:54] LABS: Eosinophils 4 % (0-10); Hemoglobin 12.3 g/dL (14.0-18.0); Lymphocytes 10 % (21-51); MDiff Complete? YES; Mean Corpuscular HGB CONC 31.9 g/dL (32.0-36.0); Mean Corpuscular Hemoglobin 28.4 pg (27.0-31.0); Mean Corpuscular Volume 89.2 fL (78.0-98.0); Mean Platelet Volume 8.6 fL (7.4-10.4); Monocytes 17 % (0-10); Neutrophil 69 % (42-75); Platelet Count 270 thou/uL (130-400); Platelet Morphology Comment Appears Adequate; Red Blood Cell (RBC) Count 4.33 mill/uL (4.70-6.10); White Blood Cell (WBC) Count 9.3 thou/uL (4.8-10.8)
[2020-06-14] MEDS: Lorazepam 2 MG/ML VIAL SLOW IVP PRN ×2 (03:55→22:44)
[2020-06-14 03:59] LABS: Anion Gap 12 mmol/L (10-20); BUN (Urea Nitrogen) 15 mg/dL (8.4-25.7); Calc. Creatinine Clearance 121 mL/min (70-130); Calcium 7.9 mg/dL (7.8-10.44); Carbon Dioxide 33 mmol/L (23-31); Chloride 91 mmol/L (98-107); Glucose 113 mg/dL (80-115); Potassium 3.7 mmol/L (3.5-5.1); Sodium 132 mmol/L (136-145)
[2020-06-14] MEDS: Furosemide 40 MG/4 ML VIAL SLOW IVP SCH ×2 (05:16→13:50)
[2020-06-14] MEDS: Metoclopramide HCl 10 MG/2 ML VIAL IVP PRN (05:19)
[2020-06-14 07:52] LABS: Actual Bicarbonate (HCO3a) 34.3 mEq/L (22-28); Base Excess (BEa) 8.7 mEq/L (-2.0 to +3.0); Calcium, Ionized (arterial) 1.11 mmol/L (1.12-1.30); Carboxyhemoglobin (COHb) 1.1 gm% (0.0-3.0); Hemoglobin (Hb) 13.1 g/dL (14.0-18.0); O2 Tension (PaO2), arterial 110.4 mmHg (> 80.0); Potassium - ABG Lab 3.52 mmol/L (3.70-5.30); pH, Arterial 7.45 (7.35-7.45)
[2020-06-14 08:06] LABS: Puncture Site LRA
[2020-06-14] MEDS: Spironolactone 25 MG TAB PO SCH (08:47)
[2020-06-14] MEDS: Aspirin 81 mg Enteric Coated Tablet PO SCH (08:47)
[2020-06-14] MEDS: Famotidine/PF 20 mg/2ml Vial SLOW IVP SCH ×2 (08:47→20:53)
[2020-06-14] MEDS: cefTRIAXone\\ROCEPHIN 2 GM in Sodium Chloride 0.9% 100 ML IVPB SCH (08:47)
[2020-06-14] MEDS: Enoxaparin Sodium 40 MG/0.4 ML SYRINGE SC SCH (08:48)
[2020-06-14] MEDS: Polyethylene Glycol 3350 17 GM Packet PO SCH (08:49)
[2020-06-14] MEDS: DOBUTamine 500 mg/250 ml 500 MG in Premix Bag 1 BAG IVPB SCH (08:55)
[2020-06-14] MEDS: Ivabradine 5 MG TAB PO SCH ×2 (08:55→20:53)
[2020-06-14] MEDS ORDERED: acetaZOLAMIDE Sodium 500 mg Vial IVP SCH (10:15)
--- NOTE | 2020-06-14 10:44 | RAD ---
PORTABLE CHEST: INDICATION: CCU followup. COMPARISON: 06/13/2020. FINDINGS: ET tube, NG tube, and central line is again noted, unchanged. Hazy infiltrate throughout the left mid and lower lung and right lower lung. Bilateral effusions. There may be some improvement in the left lung consolidation when compared to yesterday. POS: AGW
--- NOTE | 2020-06-14 14:37 | PRG ---
DATE OF SERVICE: 06/14/2020 SUBJECTIVE: Lloyd Chand currently does not have any family that is in a position to make decisions for him. Respiratory rate is 14, FiO2 is at 40%, blood pressure 105/51, heart rate is 81, slight ventricular ectopy. No torsades was reported to me. OBJECTIVE: LUNGS: Remarkable for coarse and equal breath sounds. HEART: Regular rate and rhythm. ABDOMEN: Soft. DIAGNOSTIC STUDIES: Chest radiograph still shows bilateral alveolar infiltrates and effusions. IMPRESSION: 1. Congestive heart failure. 2. Torsades, it is recurrent. 3. ? coexistent pneumonia. 4. Respiratory failure. 5. History of methamphetamine use, last admission, but not this admission. 6. Underlying severe cardiomyopathy. PLAN: Continue supportive care with slow weaning. We will try decreasing ventilatory support today and see how he tolerates this. I am not optimistic he is going to survive this. Critical care time 35 min. Job ID: [id number] MTDD
[2020-06-14] MEDS: Atorvastatin Calcium 40 MG TAB PO SCH (20:53)
[2020-06-15] MEDS: Lorazepam 2 MG/ML VIAL SLOW IVP PRN ×3 (02:26→09:21)
[2020-06-15 04:47] LABS: Anion Gap 13 mmol/L (10-20); BUN (Urea Nitrogen) 15 mg/dL (8.4-25.7); Calc. Creatinine Clearance 103 mL/min (70-130); Calcium 8.2 mg/dL (7.8-10.44); Carbon Dioxide 30 mmol/L (23-31); Chloride 92 mmol/L (98-107); Glucose 117 mg/dL (80-115); Potassium 3.4 mmol/L (3.5-5.1); Sodium 132 mmol/L (136-145)
[2020-06-15 04:51] VITALS: BMI 20.9
[2020-06-15 05:22] LABS: Band 4 % (5-11); Eosinophils 3 % (0-10); Hemoglobin 12.8 g/dL (14.0-18.0); Lymphocytes 2 % (21-51); MDiff Complete? YES; Mean Corpuscular HGB CONC 30.4 g/dL (32.0-36.0); Mean Corpuscular Hemoglobin 26.9 pg (27.0-31.0); Mean Corpuscular Volume 88.6 fL (78.0-98.0); Mean Platelet Volume 8.8 fL (7.4-10.4); Monocytes 21 % (0-10); Neutrophil 70 % (42-75); Platelet Count 327 thou/uL (130-400); Platelet Morphology Comment Appears Adequate; RBC Distribution Width 19.4 % (11.5-14.5); RBC Morphology Normal; Red Blood Cell (RBC) Count 4.77 mill/uL (4.70-6.10); White Blood Cell (WBC) Count 10.8 thou/uL (4.8-10.8)
[2020-06-15] MEDS: Furosemide 40 MG/4 ML VIAL SLOW IVP SCH (05:50)
[2020-06-15] MEDS ORDERED: Potassium Chloride 20 MEQ TAB PO SCH (06:45)
[2020-06-15] MEDS: Enoxaparin Sodium 40 MG/0.4 ML SYRINGE SC SCH (08:54)
[2020-06-15] MEDS: Famotidine/PF 20 mg/2ml Vial SLOW IVP SCH (08:54)
[2020-06-15] MEDS: cefTRIAXone\\ROCEPHIN 2 GM in Sodium Chloride 0.9% 100 ML IVPB SCH (08:54)
[2020-06-15] MEDS: Polyethylene Glycol 3350 17 GM Packet PO SCH (08:55)
[2020-06-15] MEDS: Aspirin 81 mg Enteric Coated Tablet PO SCH (08:55)
[2020-06-15] MEDS: Spironolactone 25 MG TAB PO SCH (08:55)
[2020-06-15] MEDS: DOBUTamine 500 mg/250 ml 500 MG in Premix Bag 1 BAG IVPB SCH (09:10)
[2020-06-15 09:17] VITALS: TEMP 98.4
[2020-06-15] MEDS: Ivabradine 5 MG TAB PO SCH (09:25)
[2020-06-15 10:53] VITALS: BP 96/53
--- NOTE | 2020-06-15 14:44 | PDOC.DS.DS ---
Provider - Provider Date of Admission: 06/07/20 00:05 Date of Discharge: 06/15/20 Admitting Provider: Maxi Becker MD Consultations: Cardiology (Dr. Johnson), Pulmonary (Dr. Vee) Primary Care Physician: [facility] Course - Hospital Course Hospital Course: Discharge diagnosis: 1. Hypoxic respiratory failure 2. Acute on chronic systolic congestive heart failure exacerbation NYHA class III 3. Severe mitral regurgitation 4. Hypotension 5. Hypokalemia 6. Hyponatremia 7. COVID-19 PCR test negative 8. Influenza test negative 9. Recurrent torsades 10. Severe cardiomyopathy Hospital course: Patient was admitted on June 06, 2020 for acute hypoxic respiratory failure secondary to CHF exacerbation. He was intubated following admission. He was treated with diuretics. He was also hypotensive and needed vasopressors. He was seen by pulmonary and critical care medicine as well as by cardiology service. He continued to deteriorate. Palliative care service was consulted and after discussion with family it was decided to keep patient comfortable and for hospice care. He is being discharged to inpatient hospice with a goal of terminal extubation. Many thanks for allowing me to participate in your patient's care. Please feel free to contact me with any questions or concerns. Discharge destination: Inpatient hospice Total amount of time spent coordinating this discharge: 33 minutes Resuscitation Status: 06/14/20 14:26 Resuscitation Status Routine Resuscitation Status: DNAR: NO Resuscitation Discussed with: pt's steve - Labs Lab Results: 06/15/20 04:00 06/15/20 04:00 Abnormal Lab Results - Last 48 hrs 06/14/20 03:20: Sodium 132 L, Chloride 91 L, Carbon Dioxide 33 H, Creatinine 0.60 L 06/14/20 03:20: RBC 4.33 L, Hgb 12.3 L, Hct 38.6 L, MCHC 31.9 L, RDW 19.0 H, Lymphocytes % (Manual) 10 L, Monocytes % (Manual) 17 H 06/14/20 07:25: Bicarbonate Actual 34.3 H, ABG pCO2 51.0 H, ABG pO2 110.4 H, ABG O2 Sat (Measured) 98.5 H, ABG Base Excess 8.7 H, ABG Hematocrit 39.0 L, ABG Hem oglobin 13.1 L, ABG Methemoglobin 0.00 L, A-a O2 Gradient 111.050 H, Potassium 3.52 L, Ionized Calcium 1.11 L, Sodium 130 L, Chloride 91 L 06/15/20 04:00: Potassium 3.4 L, Sodium 132 L, Chloride 92 L, Creatinine 0.67 L 06/15/20 04:00: Hgb 12.8 L, MCH 26.9 L, MCHC 30.4 L, RDW 19.4 H, Band Neuts % (Manual) 4 L, Lymphocytes % (Manual) 2 L, Monocytes % (Manual) 21 H Microbiology - Entire Visit 06/06/20 19:20 Venous blood - Neck Blood Culture - Final NO GROWTH IN 5 DAYS 06/06/20 19:18 Venous blood - Left Arm Blood Culture - Final NO GROWTH IN 5 DAYS 06/06/20 20:36 Nasal swab Influenza Types A,B Direct EIA - Final - Physical Exam Vitals: Vital Signs (12 hours) Temp Pulse Resp BP Pulse Ox 06/15/20 10:47 102 H 96/53 L 06/15/20 10:00 13 06/15/20 08:00 98.4 F 15 100 06/15/20 06:52 88 88/58 L 06/15/20 06:00 13 06/15/20 04:00 16 06/15/20 03:00 98.9 F Weight Admit Weight 187 lb Weight 146 lb 6.191 oz Most Recent Monitor Data Heart Rate from ECG 85 NIBP 90/48 NIBP BP-Mean 62 Respiration from ECG 17 SpO2 100 Physical Exam: The patient was seen and examined on the day of discharge. Patient is currently intubated. S1 and S2 are heard. Lungs examination reveals bilateral rales. Plan - Discharge Medications Home Medications: Medication Instructions Recorded Confirmed Type Aspirin Chewable [Aspirin Chewable 81 mg PO DAILY #30 tab 05/26/20 06/06/20 Rx Tablet] Atorvastatin Calcium [Lipitor] 40 mg PO HS #30 tab 05/26/20 06/06/20 Rx Carvedilol [Coreg] 3.125 mg PO BID #60 tab 05/26/20 06/06/20 Rx Ivabradine [Corlanor] 5 mg PO BID #60 tab 05/26/20 06/06/20 Rx Sacubitril/Valsartan [Entresto 24 0.5 tab PO BID #15 tab 05/26/20 06/06/20 Rx mg-26 mg Tablet] Spironolactone [Aldactone] 25 mg PO QAM-WM #30 tab 05/26/20 06/06/20 Rx Allergies: codeine Allergy (Verified 05/19/20 15:54) - Follow up Plan Referrals: [facility] [Primary Care Provider] - Disposition: [facility] Quality - Care Measures CORE MEASURES:: HF - Stroke/TIA Did you prescribe antithrombotic therapy?: Yes Did you prescribe anticoagulant for A Fib/Flutter?: No Specify reason for no DC anticoagulant: Treatment not indicated Did you prescribe a statin medication?: Yes
--- NOTE | 2020-06-16 20:46 | PQF ---
CLINICAL DOCUMENTATION CLARIFICATION FORM: Dear : Orlin Cheung Date / Time: 06/16/202044 Please exercise your independent, professional judgment in responding to the clarification form. Clinical indicators are provided on the bottom of this form for your review Please check appropriate box(es): [ x ] Sepsis due to Pneumonia [ ] Severe sepsis due to Pneumonia with Acute Respiratory Failure [ ] Septic Shock [ ] Localized infection without sepsis [ ] Other diagnosis [ ] Unable to determine Physician Signature: Date/Time: For continuity of documentation, please document condition throughout progress notes and discharge summary. Thank You. To be completed by CDI/Coding staff for physician review: Present Clinical Indicators - Signs / Symptoms / Labs Results and Location in Medical Record [x] WBC 10.1, Plt count 149, Neutrophils 77.9, Band 12, Lactic acid 7.3 Laboratory 06/06 [x] Blood culture: no growth in 5 days Microbiology 06/06 [x] Chest X-ray: Pulmonary vascular congestion with small bilateral pleural effusions Imaging Dr Panda 06/07 [x] BP 102/59, Pulse 122, Resp 22, Temp 100.2 Vital signs 06/06 [x] Fito care associated Pneumonia, Respiratory Failure, Septic Shock ED notes p1 06/07 [x] presented with Severe hypoxia H&P p1 06/07 Dr Becker [x] Acute hypoxic respiratory failure H&P p3 06/07 Dr Becker [x] Lactic acidosis- Likely 2/2 heart failure and hypoxemia. Trending down- unlikely infection H&P p4 06/07 Dr Becker [x] ? coexistent pneumonia PN p1 06/14 Dr Vee Present Risk Factors Results and Location in Medical Record [x] Fito care associated Pneumonia ED notes p1 06/07 [x] 64 year-old Male H&P p1 06/07 Dr Becker [x] CHF exacerbation H&P p1 06/07 Dr Becker [x] Smoker H&P p2 06/07 Dr Becker [x] DM H&P p2 06/07 Dr Becker Present Treatments Results and Location in Medical Record [x] IV Levophed 8 mg AUG 25 [x] IV Vancomycin 1.75 gm AUG 25 [x] IVF NS 1L AUG 25 [x] IV Maxipime 2 gm AUG 25 [x] IV Ceftriaxone 2 gm AUG 25 [x] Mechanical Ventilator Respiratory Panel 12/22 [x] Pulmo consult Consult Dr Zhu 06/08 CDS/Lead Php Developer Signature: Magda Doddchrissie Clarke Phone #: [facility] [phone] Date/Time: 06/16/202044 This is a permanent part of the Medical Record [facility]
--- NOTE | 2020-06-17 11:28 | EKG ---
Test Reason : Blood Pressure : / mmHG Vent. Rate : 133 BPM Atrial Rate : 133 BPM P-R Int : 138 ms QRS Dur : 124 ms QT Int : 310 ms P-R-T Axes : 058 -65 063 degrees QTc Int : 461 ms Sinus tachycardia with occasional Premature ventricular complexes and Fusion complexes Left axis deviation Right bundle branch block Inferior infarct , age undetermined Abnormal ECG Confirmed by BRAN COOPER ([id number]), film and video editor VINCENT JACOBSEN ([id number]) on 06/17/2020 11:27:49 AM Referred By: Confirmed By:BRAN COOPER
== END 2020-06-15 11:04 | disposition hospice, inpatient (51) | DRG 870 ==
LOC: ERS 18:50 → CCU 06-07 00:05
PROVIDERS: ADMIT Student in an Organized Health Care Education/Training Program; ATTEND Internal Medicine
PROC: 5A1955Z Respiratory Ventilation, Greater than 96 Consecutive Hours (ICD-10-PCS; principal; 2020-06-07)
PROC: 0BH17EZ Insertion of Endotracheal Airway into Trachea, Via Natural or Artificial Opening (ICD-10-PCS; 2020-06-07)
PROC: 02H633Z Insertion of Infusion Device into Right Atrium, Percutaneous Approach (ICD-10-PCS; 2020-06-07)
PROC: 5A09357 Assistance with Respiratory Ventilation, Less than 24 Consecutive Hours, Continuous Positive Airway Pressure (ICD-10-PCS; 2020-06-07)
PROC: 3E033XZ Introduction of Vasopressor into Peripheral Vein, Percutaneous Approach (ICD-10-PCS; 2020-06-07)
PROC: 0D9670Z Drainage of Stomach with Drainage Device, Via Natural or Artificial Opening (ICD-10-PCS; 2020-06-07)
DX: A41.9 Sepsis, unspecified organism (principal); J96.01 Acute respiratory failure with hypoxia; I50.23 Acute on chronic systolic (congestive) heart failure; J18.9 Pneumonia, unspecified organism; E87.1 Hypo-osmolality and hyponatremia; E87.2 Acidosis; I42.0 Dilated cardiomyopathy; I47.2 Ventricular tachycardia; Z20.828 Contact with and (suspected) exposure to other viral communicable diseases; Z66 Do not resuscitate; Z51.5 Encounter for palliative care; I34.0 Nonrheumatic mitral (valve) insufficiency; J44.9 Chronic obstructive pulmonary disease, unspecified; I11.0 Hypertensive heart disease with heart failure; E11.9 Type 2 diabetes mellitus without complications; F41.9 Anxiety disorder, unspecified; F17.210 Nicotine dependence, cigarettes, uncomplicated; I25.10 Atherosclerotic heart disease of native coronary artery without angina pectoris; E87.6 Hypokalemia; E83.42 Hypomagnesemia; Z78.1 Physical restraint status; Z90.49 Acquired absence of other specified parts of digestive tract; Z79.899 Other long term (current) drug therapy; Z79.82 Long term (current) use of aspirin; Z88.5 Allergy status to narcotic agent
CPT/HCPCS: 0240U; 31500; 36415; 36416; 36556; 36600; 51702; 71045; 71275; 80048; 80053; 80306; 82533; 82550; 82553; 82805; 83605; 83735; 83880; 84100; 84484; 85007; 85025; 85027; 85379; 85610; 85730; 87040; 87804; 93005; 94002; 94003; 94640; 94660; 94760; 96361; 96365; 96366; 96372; 96374; 96375; 96376; J0692; J0696; J1120; J1160; J1250; J1630; J1650; J1940; J2060; J2250; J2765; J3010; J3370; J3475; J3480; J3490; J7030; J7050; J7620; Q9967; S0028

== ENCOUNTER 2020-06-15 11:23 | Inpatient (IN) | payer OTHER ==
[2020-06-15] MEDS ORDERED: Morphine 2 MG/ML VIAL SLOW IVP PRN ×3 (12:22→12:29)
[2020-06-15] MEDS ORDERED: Acetaminophen 650 MG Suppository PR PRN (12:25)
[2020-06-15] MEDS ORDERED: Lorazepam 2 MG/ML VIAL SLOW IVP PRN (12:25)
[2020-06-15] MEDS ORDERED: Haloperidol Lactate 5 MG/ML VIAL SLOW IVP PRN (12:26)
[2020-06-15] MEDS ORDERED: Ondansetron PF 4 MG/2 ML Vial IVP PRN (12:27)
[2020-06-15] MEDS ORDERED: diphenhydrAMINE 50 MG/ML VIAL IVP PRN (12:27)
[2020-06-15] MEDS: Lorazepam 2 MG/ML VIAL SLOW IVP PRN ×2 (12:28→12:47)
[2020-06-15] MEDS ORDERED: Scopolamine 1.5 mg/72 hour Patch TOP PRN (12:28)
[2020-06-15] MEDS ORDERED: Morphine 4 MG/ML VIAL SLOW IVP SCH ×2 (13:00→13:30)
[2020-06-15] MEDS ORDERED: Haloperidol Lactate 5 MG/ML VIAL SLOW IVP SCH (13:00)
[2020-06-15] MEDS ORDERED: Lorazepam 2 MG/ML VIAL SLOW IVP SCH ×2 (13:00→13:30)
[2020-06-15] MEDS: Morphine 4 MG/ML VIAL SLOW IVP SCH ×5 (15:14→22:25)
[2020-06-15] MEDS: Lorazepam 2 MG/ML VIAL SLOW IVP SCH ×5 (15:14→22:26)
[2020-06-16] MEDS: Lorazepam 2 MG/ML VIAL SLOW IVP SCH ×12 (00:24→22:28)
[2020-06-16] MEDS: Morphine 4 MG/ML VIAL SLOW IVP SCH ×12 (00:24→22:28)
[2020-06-17] MEDS: Morphine 4 MG/ML VIAL SLOW IVP SCH ×12 (00:08→22:13)
[2020-06-17] MEDS: Lorazepam 2 MG/ML VIAL SLOW IVP SCH ×12 (00:09→22:13)
[2020-06-18] MEDS: Lorazepam 2 MG/ML VIAL SLOW IVP SCH ×3 (00:04→04:18)
[2020-06-18] MEDS: Morphine 4 MG/ML VIAL SLOW IVP SCH ×3 (00:04→04:17)
[2020-06-18 08:01] VITALS: BP 124/80; TEMP 99.6
--- NOTE | 2020-06-19 13:53 | DIS ---
DATE OF ADMISSION: 06/15/2020 DATE OF DISCHARGE: 06/18/2020 SUMMARY: DATE OF : June 18, 2020. TIME OF : The patient at 6:28 a.m. HISTORY OF PRESENT ILLNESS: This is a 64-year-old gentleman, who was admitted for COVID-19 - which was negative. The patient was admitted June 10 for acute hypoxic respiratory failure due to congestive heart failure. The patient was intubated, and failed all treatment and was admitted to the Hospice. The patient passed peacefully at time noted above. Family was aware. Job ID: [id number]
== END 2020-06-18 09:30 | disposition expired | DRG 951 ==
LOC: CCU 11:23 → SURG B 15:12
PROVIDERS: ADMIT Internal Medicine Nephrology; ATTEND Internal Medicine Nephrology
DX: Z51.5 Encounter for palliative care (principal); J96.01 Acute respiratory failure with hypoxia; I50.23 Acute on chronic systolic (congestive) heart failure; A41.9 Sepsis, unspecified organism; J18.9 Pneumonia, unspecified organism; E87.1 Hypo-osmolality and hyponatremia; I42.9 Cardiomyopathy, unspecified; Z66 Do not resuscitate; I34.0 Nonrheumatic mitral (valve) insufficiency; Z20.828 Contact with and (suspected) exposure to other viral communicable diseases; E87.6 Hypokalemia; I45.81 Long QT syndrome; Z88.5 Allergy status to narcotic agent
CPT/HCPCS: J1630; J2060; J2270